=== PATIENT | female | born 1945 | race Caucasian/White ===

== ENCOUNTER 2016-06-10 22:39 | Emergency (ER) | payer BC ==
[~2016-06-10] VITALS: Ht 162.6 cm; Wt 78.5 kg
[~2016-06-10 22:39] MED LIST: ASPI-676 PO; ATOR20TA17 PO; CHOL2000 PO; CLON-379 PO; DOCU100C26 PO; FLUO10CA66 PO; LOSA50TA2 PO; METF1000 PO; PANT40TA3 PO; TRAM50TA2 PO
[2016-06-10 22:44] VITALS: Ht 162.6 cm; Wt 78.5 kg
[2016-06-10 23:56] LABS: URINE BLOOD (Dip) POC 2+ (NEGATIVE)
[2016-06-11] MEDS ORDERED: ACETAMINOPHEN 325 MG TAB PO ONE
[2016-06-11 00:09] LABS: ADD SCAN DIFF NO
[2016-06-11 00:12] LABS: BASOPHIL # 0.1 10^3/ul (0.0-0.1); BASOPHILS % 0.8 % (0.0-2.0); EOSINOPHILS # 0.4 10^3/ul (0.0-0.5); EOSINOPHILS % 4.2 % (0.0-7.0); HEMATOCRIT 32.9 % (37.0-47.0); HEMOGLOBIN 10.5 g/dl (12.0-16.0); LYMPHOCYTES # 3.7 10^3/ul (0.8-2.9); MEAN CORPUSCULAR HEMOGLOBIN 25.2 pg (29.0-33.0); MEAN CORPUSCULAR HGB CONC 31.9 g/dl (32.0-37.0); MEAN CORPUSCULAR VOLUME 79.1 fl (82.0-101.0); MONOCYTE # 0.7 10^3/ul (0.3-0.9); MONOCYTES % 7.5 % (0.0-11.0); NEUTROPHIL # 4.2 10^3/ul (1.6-7.5); NEUTROPHILS % 46.3 % (39.0-77.0); PLATELET COUNT 208 10^3/UL (140-415); RED BLOOD COUNT 4.16 10^6/ul (4.20-5.40)
[2016-06-11 00:21] LABS: ADD UMIC YES; URINE BILIRUBIN (Dip) NEGATIVE (NEGATIVE); URINE BLOOD (Dip) 2+ (NEGATIVE); URINE COLOR LT. YELLOW (YELLOW); URINE GLUCOSE (Dip) NEGATIVE (NEGATIVE); URINE KETONES (Dip) NEGATIVE (NEGATIVE); URINE LEUKOCYTE ESTERASE (Dip) 3+ (NEGATIVE); URINE NITRITE (Dip) NEGATIVE (NEGATIVE); URINE TOTAL PROTEIN (Dip) TRACE (NEGATIVE); URINE UROBILINOGEN (Dip) 0.2 E.U./dL (0.1-1.0)
[2016-06-11 00:32] LABS: ALBUMIN 3.7 g/dl (3.3-4.9); ALBUMIN/GLOBULIN RATIO 1.05; CALCIUM 8.9 mg/dl (8.4-10.2); CREATININE 0.67 mg/dl (0.44-1.00); POTASSIUM 3.9 mmol/L (3.5-5.1); TOTAL PROTEIN 7.2 g/dl (6.1-8.1)
[2016-06-11 00:45] LABS: BACTERIA,URINE FEW; SQUAMOUS EPITHELIAL CELL,UR OCCASIONAL
--- NOTE | 2016-06-11 02:57 | RADRPT ---
PROCEDURE: CT ABDOMEN/PELVIS WITHOUT CONTRAST CLINICAL INDICATION: 71-year-old female with abdominal pain. TECHNIQUE: The study was performed utilizing a GE [employer] Tekpeed VCT 64-slice CT scanner. Direct axia l sections were obtained through the abdomen and pelvis without the use of intravenous contrast mate rial. Sagittal and coronal reformations were obtained. One or more of the following dose reduction t echniques were utilized: automated exposure control, adjustment of the mA and/or kV according to pat ient's size or use of iterative reconstruction technique. The images were reviewed on a PACS workst [facility]. CTD/vol = 17.0 mGy; Total Exam DLP = 979.7 mGy-cm. COMPARISON: CT abdomen/pelvis December 01, 2013. FINDINGS: The lung bases are unremarkable. There is no evidence for significant pleural effusion. The liver has a normal size and contour without focal areas of abnormal density. No intrahepatic nor extrahepa tic biliary ductal dilatation is seen. The gallbladder demonstrates no wall thickening nor perichole cystic fluid. No biliary stones are evident. A small cystic focus within the mid body of the pancrea s measuring approximately 6 x 4 mm on axial image 3-61 which was present previously and is without s ignificant interval change. The spleen is identified and has a normal size without abnormal density . The adrenal glands are unremarkable. The kidneys are without abnormal density. No hydroureteroneph rosis nor nephroureterolithiasis is evident. The urinary bladder contains urine. There is a minimal hiatal hernia. There is mild retained stool throughout the colon without obstruction. There are mu ltiple diverticula identified within the descending and sigmoid colon with mild surrounding inflammatory changes and minimal free fluid consistent with recurrent acute sigmoid diverticulitis. The appendix is visualized and is without abnormal thickening or surrounding inflammatory reaction. The uterus is atrophic. The aortoiliac vessels are calcified but without aneurysmal dilatation. De generative changes are present within the spine. There are bilateral L5 pars interarticularis defect s with minimal L5-S1 anterolisthesis and mild diffuse disk bulge resulting in yjrqeoaw-[id number]-aflkzo rig ht and wuiq-tm-gnvylxye left foraminal stenosis. IMPRESSION: 1. Mild acute sigmoid diverticulitis. 2. Retained stool without obstruction. 3. No CT evidence for appendicitis. 4. Stable small pancreatic cyst. 5. Vascular calcifications. 6. Degenerative changes within the spine with L5-S1 spondylolisthesis. .Matteo Wood MD, MD Date Time Electronically viewed and signed by .Matteo Wood MD, MD on 06/11/2016 02:57 ./
--- NOTE | 2016-06-11 03:38 | ERD ---
ER Documentation Chief Complaint Date/Time DATE: 06/11/16 TIME: 03:27 Chief Complaint blood in vagina, painful urination ,pelvic pain HPI This pleasant 71-year-old female presents to the emergency department with her daughter complaining of pelvic pain, dysuria, hematuria and blood on the toilet paper when wiping. Patient reports that she has been symptomatic for several days before telling her daughter. Daughter denies any change in mentation. Patient has not been confused or exhibiting any change in behavior. Patient reports back pain, denies fever, chills, nausea or vomiting. Patient has a complex medical history including diverticulosis, a bladder fistula, diabetes mellitus, and coronary artery disease, and total abdominal hysterectomy.. Patient denies chest pain, shortness of breath, or dizziness. ROS All systems reviewed and are negative except as per history of present illness. Medications Home Meds Active Scripts Ciprofloxacin Hcl* (Ciprofloxacin Hcl*) 500 Mg Tablet, 500 MG PO BID for 7 Days , TAB Prov:SIXTO,KAYLA 06/11/16 Metronidazole* (Flagyl*) 500 Mg Tablet, 500 MG PO TID for 7 Days, TAB Prov:SIXTO,KAYLA 06/11/16 Tramadol HCl (Tramadol HCl) 50 Mg Tablet, 50 MG PO Q6 Y for PAIN, #20 TAB Prov:MELVA TA DO 06/22/15 Clonidine Hcl* (Clonidine Hcl*) 0.1 Mg Tab, 0.1 MG PO TID Y for ELEVATED BLOOD PRESSURE, #20 TAB Take as instructed is systolic blood pressure is greater then 180mmHg Prov:ADORE ANDERSON 03/06/15 Reported Medications Fluoxetine Hcl* (Prozac*) 10 Mg Capsule, 10 MG PO DAILY, CAP 03/06/15 Pantoprazole* (Protonix*) 40 Mg Tablet.dr, 40 MG PO DAILY, TAB 03/06/15 Docusate Sodium* (Doc-Q-Lace*) 100 Mg Capsule, 100 MG PO DAILY, CAP 03/06/15 Cholecalciferol* (Vitamin D3*) 2,000 Unit Cap, 2000 UNIT PO DAILY, CAP 03/06/15 Metformin Hcl* (Metformin Hcl*) 1,000 Mg Tablet, 1000 MG PO BID WITH MEALS, #30 TAB 03/06/15 Losartan Potassium* (Cozaar*) 50 Mg Tablet, 50 MG PO BID 10/29/10 Atorvastatin (Lipitor) 20 Mg Tablet, 20 MG PO HS 10/29/10 Aspirin (Jhonny Child) 81 Mg Chew, 81 MG PO DAILY 10/29/10 Allergies Allergies: Coded Allergies: Penicillins (Verified Allergy, Unknown, 03/06/15) aspirin (Verified Allergy, Unknown, 03/06/15) PMhx/Soc History of Surgery: No Anesthesia Reaction: No Hx Neurological Disorder: No Hx Respiratory Disorders: No Hx Cardiac Disorders: Yes (HTN) Hx Psychiatric Problems: No Hx Miscellaneous Medical Probl: Yes ( DM Ulcers bladder fistula, diverticulosis ) Hx Alcohol Use: No Hx Substance Use: No Hx Tobacco Use: No Smoking Status: Never smoker Physical Exam Vitals Vitals stable, triage notes reviewed Physical Exam Const: No acute distress Head: Atraumatic Eyes: Normal Conjunctiva PERRLA, EOMI ENT: Normal External Ears, Nose and Mouth, mucous membranes moist Neck: Full range of motion..~ No meningismus. Resp: Chest rise and fall symmetrically clear to auscultation bilaterally, no rales wheezes or rhonchi Cardio: Regular rate and rhythm, no murmurs Abd: Abdomen soft, obese, tender to palpation on lower quadrants. CVA tenderness Skin: No petechiae or rashes Back: Bilateral flank tenderness Ext: Neur: Awake and alert Psych: Normal Mood and Affect Results 24 hrs Laboratory Tests Test 06/10/16 23:50 06/10/16 23:56 White Blood Count 9.010^3/ul Red Blood Count 4.1610^6/ul Hemoglobin 10.5g/dl Hematocrit 32.9% Mean Corpuscular Volume 79.1fl Mean Corpuscular Hemoglobin 25.2pg Mean Corpuscular Hemoglobin Concent 31.9g/dl Red Cell Distribution Width 15.0% Platelet Count 15430^3/UL Mean Platelet Volume 10.0fl Neutrophils % 46.3% Lymphocytes % 41.0% Monocytes % 7.5% Eosinophils % 4.2% Basophils % 0.8% Nucleated Red Blood Cells % 0.0/100WBC Neutrophils # 4.210^3/ul Lymphocytes # 3.710^3/ul Monocytes # 0.710^3/ul Eosinophils # 0.410^3/ul Basophils # 0.110^3/ul Nucleated Red Blood Cells # 0.010^3/ul Urine Color LT. YELLOW Urine Clarity SLIGHTLY CLOUDY Urine pH 7.0 Urine Specific [place] <=1.005 Urine Ketones NEGATIVE Urine Nitrite NEGATIVE Urine Bilirubin NEGATIVE Urine Urobilinogen 0.2 E.U./dL Urine Leukocyte Esterase 3+ Urine Microscopic RBC 5-10/HPF Urine Microscopic WBC >200/HPF Urine Squamous Epithelial Cells OCCASIONAL Urine Bacteria FEW Urine Hemoglobin 2+ Urine Glucose NEGATIVE% Urine Total Protein TRACE Sodium Level 133mmol/L Potassium Level 3.9mmol/L Chloride Level 101mmol/L Carbon Dioxide Level 27mmol/L Anion Gap 9 Blood Urea Nitrogen 10mg/dl Creatinine 0.67mg/dl Glucose Level 100mg/dl Calcium Level 8.9mg/dl Total Bilirubin 0.0mg/dl Direct Bilirubin 0.00mg/dl Indirect Bilirubin 0.0mg/dl Aspartate Amino Transf (AST/SGOT) 29IU/L Alanine Aminotransferase (ALT/SGPT) 28IU/L Alkaline Phosphatase 59IU/L Total Protein 7.2g/dl Albumin 3.7g/dl Globulin 3.50g/dl Albumin/Globulin Ratio 1.05 Lipase 95U/L Bedside Urine pH (LAB) 7.0 Bedside Urine Protein (LAB) 1+ Bedside Urine Glucose (UA) Negative Bedside Urine Ketones (LAB) Negative Bedside Urine Blood 2+ Bedside Urine Nitrite (LAB) Negative Bedside Urine Leukocyte Esterase (L 3+ Current Medications Medications (Trade) Dose Ordered Sig/Terra Route PRN Reason Start Time Stop Time Status Last Admin Dose Admin Acetaminophen (Tylenol Tab) 650 mg ONCE ONCE PO 06/11/16 00:00 06/11/16 00:01 DC 06/11/16 00:21 Metronidazole (Flagyl) 500 mg ONCE ONCE PO 06/11/16 04:00 06/11/16 04:02 DC 06/11/16 04:15 Ciprofloxacin (Cipro) 500 mg ONCE ONCE PO 06/11/16 04:00 06/11/16 04:02 DC 06/11/16 04:15 Interpretation text CBC shows no evidence of hemorrhage or infection Chemistry shows no evidence of significant electrolyte abnormalities (sodium 133 ) or renal insufficiency Liver function tests shows no evidence of acute biliary or hepatic dysfunction Lipase shows no evidence of acute pancreatitis Urinalysis positive for hematuria, leukocytosis. Suggestive of urinary tract infection Procedures/MDM PROCEDURE: CT ABDOMEN/PELVIS WITHOUT CONTRAST CLINICAL INDICATION: 71-year-old female with abdominal pain. TECHNIQUE: The study was performed utilizing a GE [employer] 64-slice CT scanner. Direct axial sections were obtained through the abdomen and pelvis without the use of intravenous contrast material. Sagittal and coronal reformations were obtained. One or more of the following dose reduction techniques were utilized: automated exposure control, adjustment of the mA and/ or kV according to patient's size or use of iterative reconstruction technique. The images were reviewed on a PACS workstation. CTD/vol = 17.0 mGy; Total Exam DLP = 979.7 mGy-cm. COMPARISON: CT abdomen/pelvis December 01, 2013. FINDINGS: The lung bases are unremarkable. There is no evidence for significant pleural effusion. The liver has a normal size and contour without focal areas of abnormal density. No intrahepatic nor extrahepatic biliary ductal dilatation is seen. The gallbladder demonstrates no wall thickening nor pericholecystic fluid. No biliary stones are evident. A small cystic focus within the mid body of the pancreas measuring approximately 6 x 4 mm on axial image 3-61 which was present previously and is without significant interval change. The spleen is identified and has a normal size without abnormal density. The adrenal glands are unremarkable. The kidneys are without abnormal density. No hydroureteronephrosis nor nephroureterolithiasis is evident. The urinary bladder contains urine. There is a minimal hiatal hernia. There is mild retained stool throughout the colon without obstruction. There are multiple diverticula identified within the descending and sigmoid colon with mild surrounding inflammatory changes and minimal free fluid consistent with recurrent acute sigmoid diverticulitis. The appendix is visualized and is without abnormal thickening or surrounding inflammatory reaction. The uterus is atrophic. The aortoiliac vessels are calcified but without aneurysmal dilatation. Degenerative changes are present within the spine. There are bilateral L5 pars interarticularis defects with minimal L5-S1 anterolisthesis and mild diffuse disk bulge resulting in frodonbe-vb-fseayz right and gmih-lj-ycndjybt left foraminal stenosis. IMPRESSION: 1. Mild acute sigmoid diverticulitis. 2. Retained stool without obstruction. 3. No CT evidence for appendicitis. 4. Stable small pancreatic cyst. 5. Vascular calcifications. 6. Degenerative changes within the spine with L5-S1 spondylolisthesis. .Matteo Wood MD, Date Time Electronically viewed and signed by .Matteo Wood MD, on 06/11/2016 02:57 .M/ CC: KAYLA HENSON This pleasant 71-year-old female brought in by daughter with complaint of lower abdominal pain, dysuria, hematuria. Symptoms have been present for several days. Patient has a complex medical history including diabetes, coronary artery disease, diverticulosis and a bladder fistula. Differential diagnosis includes but not limited to urinary tract infection, pyelonephritis, diverticulitis, perforated diverticuli, acute abdomen. CBC shows no evidence of hemorrhage or infection Chemistry shows no evidence of significant electrolyte abnormalities or renal insufficiency. Patient is afebrile, treated with Tylenol for pain. CAT scan of abdomen and pelvis show mild acute sigmoid diverticulitis, retained stool without obstruction. Patient is well hydrated, does not appear toxic, is alert afebrile with stable vital signs I feel she can be treated in the outpatient setting. She will receive a dose of Flagyl and Cipro tonight prior to discharge sent home on a seven-day course of both medications. Strict return to emergency room precautions advised. Return for any nausea, vomiting, fever, worsening of abdominal pain, rectal bleeding. Follow-up with primary physician in 24 hours. I feel the patient is stable for discharge at this time. I have discussed results, examination findings, the treatment plan with the patient and family present prior to discharge. Indications for emergent reevaluation, side effects of medication were also discussed. All questions were answered. Patient verbalizes understanding and agrees with plan of care. Case discussed with supervising physician Dr. Manuel Boggs Diagnosis: Primary Impression: Urinary tract infection Urinary tract infection type: site unspecified Hematuria presence: with hematuria Qualified Code: N39.0 - Urinary tract infection with hematuria, site unspecified Additional Impression: Diverticula of colon Diverticulosis bleeding: diverticulosis with bleeding Qualified Code: K57.31 - Diverticulosis of large intestine with hemorrhage Condition: Good Patient Instructions: Diverticulitis, Understanding Urinary Tract Infections ( UTIs) Additional Instructions: Thank you for for coming to [facility] for your care today. Please ask your nurse or provider if you have questions about your care today and do not leave until all your questions have been answered. Please use any medications given as directed and follow-up with your doctor (or the doctor you were referred to) in the next 2-3 days. If you do not have a primary care doctor you may follow up at the [facility] (listed below). You may also use motrin and tylenol as needed for fever and/or pain unless instructed otherwise by your provider or nurse. Indications for more urgent follow-up have been discussed, but you may return to the Emergency Department at ANY time for any worrisome or worsening symptoms. If you have abdominal pain, please know that no test or exam you received is perfect and you should follow up within 8 hours for continued pain. If you had any imaging studies today, such as an X-Ray or CT Scan, these studies will be reviewed later by a radiologist. You will be called if there are important findings that were not identified today, so make sure the contact information you provided at registration is correct. If you received any narcotic pain control medicine today, such as Vicodin, Morphine or Dilaudid, your coordination and judgment may be affected for a number of hours. Please do not drive or operate heavy machinery, and you may want someone to assist you at home. If you were given a prescription for narcotic medication, be aware that it is very addictive- use sparingly and only if necessary. KAYLA HENSON Jun 11, 2016 03:37 KAYLA HENSON Jun 11, 2016 03:37
[2016-06-11] MEDS ORDERED: NITR-58 PO ×2 (03:40→03:41)
[2016-06-11] MEDS ORDERED: PHEN-538 PO (03:43)
[2016-06-11] MEDS ORDERED: METR500T PO (03:57)
[2016-06-11] MEDS ORDERED: CIPR500T4 PO (03:57)
[2016-06-11] MEDS ORDERED: metroNIDAZOLE 500 MG TAB PO ONE (04:00)
[2016-06-11] MEDS ORDERED: CIPROFLOXACIN 500 MG TAB PO ONE (04:00)
[2016-06-11 04:21] VITALS: BP 118/57; PULSE 61; RESP 16; TEMP 97.7
== END 2016-06-11 04:32 | disposition home or self-care (01) ==
LOC: FTE 22:39
DX: N39.0 Urinary tract infection, site not specified (principal); K57.31 Diverticulosis of large intestine without perforation or abscess with bleeding; I10 Essential (primary) hypertension; E11.9 Type 2 diabetes mellitus without complications; I25.10 Atherosclerotic heart disease of native coronary artery without angina pectoris; Z79.82 Long term (current) use of aspirin; Z79.84 Long term (current) use of oral hypoglycemic drugs
CPT/HCPCS: 74176; 80053; 81001; 81003; 83690; 85025; 87086; Z7610; 36415

== ENCOUNTER 2016-08-09 11:56 | Emergency (ER) | payer BC ==
[~2016-08-09] VITALS: Ht 157.5 cm; Wt 70.0 kg
[~2016-08-09 11:56] MED LIST changes: +CIPR500T4 PO; +METR500T PO
[2016-08-09 12:00] VITALS: Ht 157.5 cm; Wt 70.0 kg
[2016-08-09] MEDS ORDERED: SOD CHLORIDE 0.9% 1,000 ML IV STA (13:00)
[2016-08-09] MEDS ORDERED: morphine 4 MG/ML VIAL IV STA (13:00)
[2016-08-09] MEDS ORDERED: ONDANSETRON 4 MG INJ IV STA (13:00)
--- NOTE | 2016-08-09 13:00 | ERD ---
ER Documentation Chief Complaint Date/Time DATE: 08/09/16 TIME: 12:58 Chief Complaint ap, hematuria x 2 weeks HPI 70-year-old female, history of hyperlipidemia, hypertension, diabetes mellitus, gastritis and gastroesophageal reflux disease, diverticulosis, diverticulitis osteoarthritis, diabetic neuropathy, urinary tract infection, pyelonephritis and depression ambulatory to the ED complaining of a one-month history of worsening, generalized, sharp and crampy, nonradiating abdominal pain which has become severe over the last 2 days. Nausea but no vomiting, diarrhea or constipation. Patient has noted bleeding which she insists is either vaginal or urinary but definitely not hematochezia. No hematemesis or melanotic stools. Dysuria and hematuria but no polyuria or flank pain. No relieving or exacerbating factors. No chest pain or palpitations. Denies shortness of breath or cough. No skin rash. Denies headache, visual changes, focal weakness or numbness. No neck or back pain. Subjective fevers and chills. ROS All systems reviewed and are negative except as per history of present illness. Medications Home Meds Active Scripts Tramadol HCl (Tramadol HCl) 50 Mg Tablet, 50 MG PO Q6 Y for PAIN, #12 TAB Prov:ARIEL JOE MD 08/09/16 Ondansetron Hcl* (Zofran*) 4 Mg Tablet, 4 MG PO Q8H Y for NAUSEA AND/OR VOMITING , #15 TAB Prov:ARIEL JOE MD 08/09/16 Metronidazole* (Flagyl*) 500 Mg Tablet, 500 MG PO TID for 10 Days, TAB Prov:ARIEL JOE MD 08/09/16 Ciprofloxacin Hcl* (Ciprofloxacin Hcl*) 500 Mg Tablet, 500 MG PO BID for 10 Days , TAB Prov:ARIEL JEO MD 08/09/16 Reported Medications Cholecalciferol* (Vitamin D3*) 1,000 Unit Tablet, 1000 UNIT PO DAILY, TAB 08/09/16 Oxybutynin Chloride* (Ditropan* XL) 10 Mg Tab.er.24, 10 MG PO DAILY, TAB.SA 08/09/16 Gabapentin* (Gabapentin*) 100 Mg Capsule, 100 MG PO DAILY, #30 CAP 08/09/16 Pantoprazole* (Protonix*) 40 Mg Tablet.dr, 40 MG PO DAILY, TAB 03/06/15 Metformin Hcl* (Metformin Hcl*) 1,000 Mg Tablet, 1000 MG PO BID WITH MEALS, #30 TAB 03/06/15 Losartan Potassium* (Cozaar*) 50 Mg Tablet, 50 MG PO BID 10/29/10 Atorvastatin (Lipitor) 20 Mg Tablet, 20 MG PO HS 10/29/10 Aspirin (Jhonny Child) 81 Mg Chew, 81 MG PO DAILY 10/29/10 Discontinued Reported Medications Fluoxetine Hcl* (Prozac*) 10 Mg Capsule, 10 MG PO DAILY, CAP 03/06/15 Docusate Sodium* (Doc-Q-Lace*) 100 Mg Capsule, 100 MG PO DAILY, CAP 03/06/15 Cholecalciferol* (Vitamin D3*) 2,000 Unit Cap, 2000 UNIT PO DAILY, CAP 03/06/15 Discontinued Scripts Ciprofloxacin Hcl* (Ciprofloxacin Hcl*) 500 Mg Tablet, 500 MG PO BID for 7 Days , TAB Prov:SIXTO,KAYLA 06/11/16 Metronidazole* (Flagyl*) 500 Mg Tablet, 500 MG PO TID for 7 Days, TAB Prov:SIXTO,KAYLA 06/11/16 Tramadol HCl (Tramadol HCl) 50 Mg Tablet, 50 MG PO Q6 Y for PAIN, #20 TAB Prov:MELVA TA DO 06/22/15 Clonidine Hcl* (Clonidine Hcl*) 0.1 Mg Tab, 0.1 MG PO TID Y for ELEVATED BLOOD PRESSURE, #20 TAB Take as instructed is systolic blood pressure is greater then 180mmHg Prov:ADORE ANDERSON 03/06/15 Allergies Allergies: Coded Allergies: Penicillins (Verified Allergy, Unknown, 08/09/16) aspirin (Verified Allergy, Unknown, 08/09/16) PMhx/Soc As per HPI. Reviewed in chart, lives with family. History of Surgery: No Anesthesia Reaction: No Hx Neurological Disorder: No Hx Respiratory Disorders: No Hx Cardiac Disorders: Yes (HTN) Hx Psychiatric Problems: No Hx Miscellaneous Medical Probl: Yes ( DM Ulcers bladder fistula, diverticulosis ) Hx Alcohol Use: No Hx Substance Use: No Hx Tobacco Use: No FmHx Father of [place] in his 50s. Multiple other family members with heart disease. Mother: Liver cancer. Physical Exam Vitals Vital Signs Date Time Temp Pulse Resp B/P Pulse Ox O2 Delivery O2 Flow Rate FiO2 08/09/16 17:06 98.8 18 99 08/09/16 12:00 98.8 85 18 170/104 99 Physical Exam Const: Alert, moderate distress due to pain. Head: Atraumatic Eyes: Normal Conjunctiva ENT: Normal External Ears, Nose and Mouth. Neck: Full range of motion..~ No meningismus. Resp: Clear to auscultation bilaterally Cardio: Regular rate and rhythm, no murmurs Abd: Soft, diffuse nonlocalizing tenderness. No rebound or guarding. Bowel sounds are present. Skin: No petechiae or rashes Back: No midline or flank tenderness Ext: No cyanosis, or edema Neur: Awake and alert Psych: Normal Mood and Affect Result Diagram: 08/09/16 1300 08/09/16 1300 Results 24 hrs Laboratory Tests Test 08/09/16 12:45 08/09/16 13:00 08/09/16 13:20 Urine Color YELLOW Urine Clarity CLOUDY Urine pH 6.0 Urine Specific [place] 1.012 Urine Ketones NEGATIVEmg/dL Urine Nitrite NEGATIVEmg/dL Urine Bilirubin NEGATIVEmg/dL Urine Urobilinogen NEGATIVEmg/dL Urine Leukocyte Esterase 3+Juanito/ul Urine Microscopic RBC 9/HPF Urine Microscopic WBC > 182/HPF Urine Bacteria FEW/HPF Urine Hemoglobin 1+mg/dL Urine Glucose NEGATIVEmg/dL Urine Total Protein NEGATIVEmg/dl White Blood Count 7.610^3/ul Red Blood Count 4.4710^6/ul Hemoglobin 11.8g/dl Hematocrit 35.9% Mean Corpuscular Volume 80.3fl Mean Corpuscular Hemoglobin 26.4pg Mean Corpuscular Hemoglobin Concent 32.9g/dl Red Cell Distribution Width 15.1% Platelet Count 58077^3/UL Mean Platelet Volume 9.6fl Neutrophils % 49.5% Lymphocytes % 37.4% Monocytes % 8.2% Eosinophils % 4.0% Basophils % 0.5% Nucleated Red Blood Cells % 0.0/100WBC Neutrophils # 3.810^3/ul Lymphocytes # 2.810^3/ul Monocytes # 0.610^3/ul Eosinophils # 0.310^3/ul Basophils # 0.010^3/ul Nucleated Red Blood Cells # 0.010^3/ul Sodium Level 135mmol/L Potassium Level 3.6mmol/L Chloride Level 100mmol/L Carbon Dioxide Level 25mmol/L Anion Gap 14 Blood Urea Nitrogen 8mg/dl Creatinine 0.66mg/dl Glucose Level 124mg/dl Calcium Level 10.0mg/dl Total Bilirubin 0.2mg/dl Direct Bilirubin 0.00mg/dl Indirect Bilirubin 0.2mg/dl Aspartate Amino Transf (AST/SGOT) 32IU/L Alanine Aminotransferase (ALT/SGPT) 34IU/L Alkaline Phosphatase 46IU/L Troponin I < 0.012ng/ml Total Protein 7.8g/dl Albumin 4.5g/dl Globulin 3.30g/dl Albumin/Globulin Ratio 1.36 Lipase 66U/L Bedside Glucose 104mg/dL Current Medications Medications (Trade) Dose Ordered Sig/Terra Route PRN Reason Start Time Stop Time Status Last Admin Dose Admin Sodium Chloride (NS) 1,000 ml @ 1,000 mls/hr Q1H STAT IV 08/09/16 13:00 08/09/16 13:59 DC 08/09/16 13:13 Morphine Sulfate (morphine) 4 mg ONCE STAT IV 08/09/16 13:00 08/09/16 13:02 DC 08/09/16 13:13 Ondansetron HCl (Zofran Inj) 4 mg ONCE STAT IV 08/09/16 13:00 08/09/16 13:02 DC 08/09/16 13:13 Iohexol 150 ml 150 ml STK-MED ONCE .ROUTE 08/09/16 14:02 08/09/16 14:03 DC 08/09/16 14:30 Sodium Chloride (NS) 250 ml @ ud STK-MED ONCE .ROUTE 08/09/16 14:02 08/09/16 14:03 DC 08/09/16 14:30 Metronidazole (Flagyl) 500 mg ONCE ONCE PO 08/09/16 15:30 08/09/16 15:31 DC 08/09/16 15:30 Ciprofloxacin (Cipro) 500 mg ONCE ONCE PO 08/09/16 15:30 08/09/16 15:31 DC 08/09/16 15:30 EKG: Time: 13:23. Sinus rhythm. Ventricular rate 70, normal NH and QRS intervals. No acute ST segment elevation or depression. No axis deviation or ectopy. EP Impression: Normal EKG IMAGING: PROCEDURE: CT abdomen and pelvis with intravenous contrast. CLINICAL INDICATION: Abdominal pain. Hematuria. TECHNIQUE: Following intravenous contrast, spiral CT of the abdomen pelvis was performed and is reconstructed at 2.5 mm contiguous axial intervals from the dome of the diaphragm to the inferior pubic rami. Computer reformatted coronal and sagittal images are included. CT D I 20 millicurie Dose 1078 millicurie per centimeter COMPARISON: CT abdomen pelvis June 11, 2016. FINDINGS: Lung bases are clear of any infiltrate or mass. There is no effusion. The liver is of normal size, contour and attenuation with no mass or intrahepatic ductal dilatation. No gallstones are present. No splenic, adrenal or pancreatic abnormalities present. Kidneys excrete contrast symmetrically. No hydronephrosis, calculus or masses present. Ureters are of normal course and caliber with no stone. There is thickening of the fundus of the bladder adjacent to the sigmoid. There is questionable trace fluid interposed between the inferior aspect of the sigmoid and superior aspect of the wall of the bladder. This may represent evidence of diverticulitis or a bladder malignancy.. Uterus is been removed. No adnexal mass is present. No bowel mass or obstruction is seen. There is diverticulosis. The appendix is normal. There is no phlegmon, ascites or pneumoperitoneum. No aneurysm is detected. There is no adenopathy. There is mild rotary dextroscoliosis of the lumbar spine with degenerative disk disease. IMPRESSION: Sigmoid diverticulosis. Thick-walled fundus of the urinary bladder with questionable fluid and extraluminal air interposed between the inferior wall of sigmoid and superior wall of the bladder. Question diverticulitis. Bladder malignancy with focal perforation cannot be ruled out. Post hysterectomy. Rotary dextroscoliosis lumbar spine with degenerative disk disease. .Brandon López MD, MD Date Time Electronically viewed and signed by .Brandon López MD, MD on 08/09/2016 14: 42 .A/ Procedures/MDM DOCUMENTS REVIEWED: ED nurse, prior ED, prior records. ED COURSE: Normal saline 1 L. Morphine 4 mg/Zofran 4 mg IV. REEXAMINATION/REEVALUATION: Time: 14:00. Doing well. Pain decreased. [employer]-year-old female, history of hyperlipidemia, hypertension, diabetes mellitus, gastritis and gastroesophageal reflux disease, diverticulosis, diverticulitis osteoarthritis, diabetic neuropathy, urinary tract infection, pyelonephritis and depression ambulatory to the ED complaining of a one-month history of worsening, generalized, sharp and crampy, nonradiating abdominal pain which has become severe over the last 2 days. Pain likely due to diverticulitis. Acute cystitis with hematuria. Vital signs are normal and no significant anemia. CT findings as above. There is a possibility of a enterovesicular fistula which is already been explored. Patient was seen by urology recently and told that there was no urologic abnormality and needed to follow up with GI or surgery. No fever, leukocytosis or other criteria for systemic inflammatory response syndrome or sepsis. Tolerating PO's and stable for discharge with oral antibiotics, analgesics and outpatient follow-up as counseled. Counseled patient and family regarding diagnostic workup, diagnosis and need for followup. Understands to return to ED if symptoms recur, worsen or any other concerns. Departure Diagnosis: Primary Impression: Acute generalized abdominal pain Additional Impressions: Diverticulitis Diverticulitis site: large intestine Diverticulitis bleeding: without bleeding Diverticulitis complication: without perforation or abscess Qualified Code: K57.32 - Diverticulitis of large intestine without perforation or abscess without bleeding Acute cystitis Hematuria presence: with hematuria Qualified Code: N30.01 - Acute cystitis with hematuria Diabetes mellitus type 2 in obese Condition: Stable (Improved) ARIEL JOE MD Aug 09, 2016 13:00
[2016-08-09 13:20] LABS: ADD SCAN DIFF NO
[2016-08-09 13:24] LABS: BASOPHILS % 0.5 % (0.0-2.0); EOSINOPHILS # 0.3 10^3/ul (0.0-0.5); HEMATOCRIT 35.9 % (37.0-47.0); HEMOGLOBIN 11.8 g/dl (12.0-16.0); LYMPHOCYTES # 2.8 10^3/ul (0.8-2.9); LYMPHOCYTES % 37.4 % (15.0-51.0); MEAN CORPUSCULAR HEMOGLOBIN 26.4 pg (29.0-33.0); MEAN CORPUSCULAR HGB CONC 32.9 g/dl (32.0-37.0); MEAN CORPUSCULAR VOLUME 80.3 fl (82.0-101.0); MEAN PLATELET VOLUME 9.6 fl (7.4-10.4); MONOCYTE # 0.6 10^3/ul (0.3-0.9); MONOCYTES % 8.2 % (0.0-11.0); NEUTROPHIL # 3.8 10^3/ul (1.6-7.5); NEUTROPHILS % 49.5 % (39.0-77.0); PLATELET COUNT 223 10^3/UL (140-415); RED BLOOD COUNT 4.47 10^6/ul (4.20-5.40); RED CELL DISTRIBUTION WIDTH 15.1 % (11.5-14.5); WHITE BLOOD COUNT 7.6 10^3/ul (4.8-10.8)
[2016-08-09 13:33] LABS: ALANINE AMINOTRANSFERASE 34 IU/L (13-69); ALBUMIN 4.5 g/dl (3.3-4.9); ALBUMIN/GLOBULIN RATIO 1.36; ALKALINE PHOSPHATASE 46 IU/L (42-121); ANION GAP 14 (8-16); ASPARTATE AMINO TRANSFERASE 32 IU/L (15-46); BILIRUBIN,INDIRECT 0.2 mg/dl (0-1.1); BILIRUBIN,TOTAL 0.2 mg/dl (0.2-1.3); BLOOD UREA NITROGEN 8 mg/dl (7-20); CHLORIDE 100 mmol/L (97-110); CREATININE 0.66 mg/dl (0.44-1.00); GLUCOSE 124 mg/dl (70-220); POTASSIUM 3.6 mmol/L (3.5-5.1); SODIUM 135 mmol/L (135-144); TOTAL PROTEIN 7.8 g/dl (6.1-8.1)
[2016-08-09 13:37] LABS: CARBON DIOXIDE 25 mmol/L (21-31)
[2016-08-09 13:46] LABS: TROPONIN-I < 0.012 ng/ml (0.00-0.12)
[2016-08-09 14:02] LABS: ADD UMIC YES; UR ASCORBIC ACID 20 mg/dL (NEGATIVE); UR BACTERIA FEW /HPF (NONE SEEN); UR BILIRUBIN (Dip) NEGATIVE (NEGATIVE); UR BLOOD (Dip) 1+ mg/dL (NEGATIVE); UR CLARITY CLOUDY (CLEAR); UR COLOR YELLOW (YELLOW); UR GLUCOSE (Dip) NEGATIVE (NEGATIVE); UR KETONES (Dip) NEGATIVE (NEGATIVE); UR LEUKOCYTE ESTERASE (Dip) 3+ Leu/ul (NEGATIVE); UR NITRITE (Dip) NEGATIVE (NEGATIVE); UR RBC 9 /HPF (0-5); UR SPECIFIC GRAVITY (Dip) 1.012 (1.003-1.030); UR TOTAL PROTEIN (Dip) NEGATIVE (NEGATIVE); UR UROBILINOGEN (Dip) NEGATIVE (NEGATIVE); UR WBC CLUMPS MANY /HPF (NONE SEEN)
[2016-08-09] MEDS ORDERED: IOHEXOL 300MG/ML 150 ML BTL ONE (14:02)
[2016-08-09] MEDS ORDERED: SOD CHLORIDE 0.9% 250 ML ONE (14:02)
[2016-08-09] MEDS ORDERED: GABA100C14 PO (14:07)
[2016-08-09] MEDS ORDERED: OXYB10TA6 PO (14:08)
[2016-08-09] MEDS ORDERED: CHOL100062 PO (14:08)
--- NOTE | 2016-08-09 14:43 | RADRPT ---
PROCEDURE: CT abdomen and pelvis with intravenous contrast. CLINICAL INDICATION: Abdominal pain. Hematuria. TECHNIQUE: Following intravenous contrast, spiral CT of the abdomen pelvis was performed and is re constructed at 2.5 mm contiguous axial intervals from the dome of the diaphragm to the inferior pubi c rami. Computer reformatted coronal and sagittal images are included. CT D I 20 millicurie Dose 1078 millicurie per centimeter COMPARISON: CT abdomen pelvis June 11, 2016. FINDINGS: Lung bases are clear of any infiltrate or mass. There is no effusion. The liver is of normal size, contour and attenuation with no mass or intrahepatic ductal dilatation. No gallstones are present. No splenic, adrenal or pancreatic abnormalities present. Kidneys excrete contrast symmetrically. No hydronephrosis, calculus or masses present. Ureters are of normal course and caliber with no stone. There is thickening of the fundus of the bladder adjac ent to the sigmoid. There is questionable trace fluid interposed between the inferior aspect of the sigmoid and superior aspect of the wall of the bladder. This may represent evidence of diverticuli tis or a bladder malignancy.. Uterus is been removed. No adnexal mass is present. No bowel mass or obstruction is seen. There is diverticulosis. The appendix is normal. There is no phlegmon, ascites or pneumoperitoneum. No aneurysm is detected. There is no adenopathy. There is mild rotary dextroscoliosis of the lumbar spine with degenerative disk disease. IMPRESSION: Sigmoid diverticulosis. Thick-walled fundus of the urinary bladder with questionable fluid and extr aluminal air interposed between the inferior wall of sigmoid and superior wall of the bladder. Ques tion diverticulitis. Bladder malignancy with focal perforation cannot be ruled out. Post hysterectomy. Rotary dextroscoliosis lumbar spine with degenerative disk disease. .Brandon López MD, MD Date Time Electronically viewed and signed by .Brandon López MD, on 08/09/2016 14:42 .A/
[2016-08-09] MEDS ORDERED: CIPROFLOXACIN 500 MG TAB PO ONE (15:30)
[2016-08-09] MEDS ORDERED: metroNIDAZOLE 500 MG TAB PO ONE (15:30)
[2016-08-09] MEDS ORDERED: ONDA4TAB8 PO (16:01)
[2016-08-09] MEDS ORDERED: METR500T PO (16:01)
[2016-08-09] MEDS ORDERED: TRAM50TA2 PO (16:01)
[2016-08-09] MEDS ORDERED: CIPR500T4 PO (16:01)
[2016-08-09 17:06] VITALS: RESP 18; TEMP 98.8
== END 2016-08-09 20:00 | disposition home or self-care (01) ==
LOC: E/R 11:56
DX: R10.84 Generalized abdominal pain (principal); K57.32 Diverticulitis of large intestine without perforation or abscess without bleeding; N30.01 Acute cystitis with hematuria; E11.9 Type 2 diabetes mellitus without complications; I10 Essential (primary) hypertension; Z79.82 Long term (current) use of aspirin; Z79.84 Long term (current) use of oral hypoglycemic drugs
CPT/HCPCS: 36415; 74177; 80053; 81001; 82962; 83690; 84484; 85025; 87086; 93005; 96374; 96375; 99285; J2270; J2405; J7030; J7050; Q9967; Z7610

== ENCOUNTER 2016-12-25 18:12 | Inpatient (IN) | payer BC ==
[~2016-12-25] VITALS: Ht 157.5 cm; Wt 77.3 kg
[~2016-12-25 18:12] MED LIST changes: +CHOL100062 PO; -CHOL2000 PO; -CLON-379 PO; -DOCU100C26 PO; -FLUO10CA66 PO; +GABA100C14 PO; +ONDA4TAB8 PO; +OXYB10TA6 PO
--- NOTE | 2016-12-25 19:05 | ERD ---
ER Documentation Chief Complaint Chief Complaint Sent by PMD s/p doppler to right leg pain; + blood clot to right leg HPI 71-year-old woman referred here by PMD for possible new right lower extremity DVT. Ultrasound was done just prior to arrival for complaints of "months" of right thigh and leg pain. Patient denies redness or swelling although she does have a chronic history of varicose veins to the right anterior lower leg. Patient denies calf tenderness, no fevers or chills, no chest pain or shortness of breath. Upon further history obtained later patient complains of increasing recent epigastric abdominal pain and discomfort. She denies recent medication changes and recent travel. ROS All systems reviewed and are negative except as per history of present illness. Medications Home Meds Active Scripts Tramadol HCl (Tramadol HCl) 50 Mg Tablet, 50 MG PO Q6 Y for PAIN, #12 TAB Prov:ARIEL JOE MD 08/09/16 Ondansetron Hcl* (Zofran*) 4 Mg Tablet, 4 MG PO Q8H Y for NAUSEA AND/OR VOMITING , #15 TAB Prov:ARIEL JOE MD 08/09/16 Reported Medications Cholecalciferol* (Vitamin D3*) 1,000 Unit Tablet, 1000 UNIT PO DAILY, TAB 08/09/16 Oxybutynin Chloride* (Ditropan* XL) 10 Mg Tab.er.24, 10 MG PO DAILY, TAB.SA 08/09/16 Gabapentin* (Gabapentin*) 100 Mg Capsule, 100 MG PO DAILY, #30 CAP 08/09/16 Pantoprazole* (Protonix*) 40 Mg Tablet.dr, 40 MG PO DAILY, TAB 03/06/15 Metformin Hcl* (Metformin Hcl*) 1,000 Mg Tablet, 1000 MG PO BID WITH MEALS, #30 TAB 03/06/15 Losartan Potassium* (Cozaar*) 50 Mg Tablet, 50 MG PO BID 10/29/10 Atorvastatin (Lipitor) 20 Mg Tablet, 20 MG PO HS 10/29/10 Aspirin (Jhonny Child) 81 Mg Chew, 81 MG PO DAILY 10/29/10 Discontinued Scripts Metronidazole* (Flagyl*) 500 Mg Tablet, 500 MG PO TID for 10 Days, TAB Prov:ARIEL JOE MD 08/09/16 Ciprofloxacin Hcl* (Ciprofloxacin Hcl*) 500 Mg Tablet, 500 MG PO BID for 10 Days , TAB Prov:ARIEL JOE MD 08/09/16 Allergies Allergies: Coded Allergies: Penicillins (Verified Allergy, Unknown, 08/09/16) aspirin (Verified Allergy, Unknown, 08/09/16) PMhx/Soc hyperlipidemia, hypertension, diabetes mellitus, gastritis, gastroesophageal reflux disease, diverticulosis, osteoarthritis, diabetic neuropathy, urinary tract infection, pyelonephritis, and depression History of Surgery: No Anesthesia Reaction: No Hx Neurological Disorder: No Hx Respiratory Disorders: No Hx Cardiac Disorders: Yes (HTN) Hx Psychiatric Problems: No Hx Miscellaneous Medical Probl: Yes ( DM Ulcers bladder fistula, diverticulosis ) Hx Alcohol Use: No Hx Substance Use: No Hx Tobacco Use: No FmHx Family History: No diabetes Physical Exam Vitals Vital Signs Date Time Temp Pulse Resp B/P Pulse Ox O2 Delivery O2 Flow Rate FiO2 12/25/16 19:22 97.8 65 17 137/78 98 Room Air 12/25/16 18:20 97.8 70 20 161/74 95 Physical Exam GENERAL: Well-developed, well-nourished, well-hydrated, in no apparent distress , looks nontoxic in appearance HEENT: Moist mucous membranes, pink conjunctiva, no cervical spine tenderness or step-off deformities, no goiter, no jaundice or icterus, extraocular movements intact without pain. No submandibular induration, and no pharyngeal erythema NEURO: Alert and oriented 3, cranial nerves II through XII intact bilaterally, pupils equal round reactive to light, no focal deficits or facial asymmetry, sensation intact distally Strength 5/5 in upper and lower extremities bilaterally CARDIAC: Regular rate and rhythm, no murmurs rubs or gallops LUNGS: Clear bilaterally no wheezing crackles or stridor ABDOMEN: Soft nontender, no guarding, no rigidity, no rebound, no psoas sign no obturator sign. Normoactive bowel sounds SKIN: Warm and dry to touch, no abrasions, contusions, or hematomas, no lacerations, no ecchymosis, no target lesions, and without ulcers EXTREMITIES: Right lower extremity varicose veins anteriorly just proximal to the ankle, calves are bilaterally symmetrical, no Homans sign, no popliteal cord sign. Distal pulses equal and bilateral PSYCH: Normal affect without agitation or irritability Result Diagram: 12/25/16191412/25/161914 Results 24 hrs Laboratory Tests Test 12/25/16 19:15 White Blood Count 8.210^3/ul Red Blood Count 4.5510^6/ul Hemoglobin 12.2g/dl Hematocrit 37.8% Mean Corpuscular Volume 83.1fl Mean Corpuscular Hemoglobin 26.8pg Mean Corpuscular Hemoglobin Concent 32.3g/dl Red Cell Distribution Width 13.5% Platelet Count 47237^3/UL Mean Platelet Volume 9.3fl Neutrophils % 37.5% Lymphocytes % 51.5% Monocytes % 7.0% Eosinophils % 3.0% Basophils % 0.9% Nucleated Red Blood Cells % 0.0/100WBC Neutrophils # 3.110^3/ul Lymphocytes # 4.210^3/ul Monocytes # 0.610^3/ul Eosinophils # 0.310^3/ul Basophils # 0.110^3/ul Nucleated Red Blood Cells # 0.010^3/ul Prothrombin Time 12.5Sec Prothrombin Time Ratio 1.0 INR International Normalized Ratio 0.93 Sodium Level 142mmol/L Potassium Level 4.1mmol/L Chloride Level 101mmol/L Carbon Dioxide Level 29mmol/L Anion Gap 16 Blood Urea Nitrogen 10mg/dl Creatinine 0.71mg/dl Glucose Level 95mg/dl Calcium Level 9.5mg/dl Total Bilirubin 0.2mg/dl Direct Bilirubin 0.00mg/dl Indirect Bilirubin 0.2mg/dl Aspartate Amino Transf (AST/SGOT) 27IU/L Alanine Aminotransferase (ALT/SGPT) 35IU/L Alkaline Phosphatase 52IU/L Troponin I < 0.012ng/ml Total Protein 8.0g/dl Albumin 4.4g/dl Globulin 3.60g/dl Albumin/Globulin Ratio 1.22 Lipase 994U/L Current Medications Medications (Trade) Dose Ordered Sig/Terra Route PRN Reason Start Time Stop Time Status Last Admin Dose Admin Sodium Chloride (NS) 1,000 ml @ 1,000 mls/hr Q1H ONCE IV 12/25/16 21:30 12/25/16 22:29 Procedures/MDM IV line was established patient was placed on plugger worker rhythm strip revealed a sinus rhythm at about 60 bpm with upright P and T waves. Patient was afebrile EKG performed, read by me: 63 bpm, normal sinus rhythm, normal axis, no acute ST segment changes, narrow QRS complex, with good R-wave progression in precordial leads. One AP view of the chest performed, read by me reveals no acute infiltrates, normal mediastinum, sharp costophrenic and cardiac borders, no air under the diaphragm. Otherwise unremarkable chest x-ray. Bilateral lower extremity ultrasound was performed: No evidence of a deep vein thrombosis within the bilateral lower extremities. CBC was normal, electrolytes were normal, liver function tests were normal although lipase was over 900. Troponin was negative. Coagulation profile was normal. I administered 2 L normal saline intravenously for acute pancreatitis. I spoke to the patient's insurance directed physician and we both agreed to patient will have to be admitted for continued IV hydration. Patient admitted to [facility]. Departure Diagnosis: Primary Impression: Pain of right leg Additional Impression: Acute pancreatitis Pancreatitis type: unspecified pancreatitis type Acute pancreatitis complication: unspecified Qualified Code: K85.90 - Acute pancreatitis, unspecified complication status, unspecified pancreatitis type Condition: MICHELINE Dawn MD Dec 25, 2016 19:05
[2016-12-25 19:22] VITALS: TEMP 97.8
[2016-12-25 19:25] LABS: BASOPHIL # 0.1 10^3/ul (0.0-0.1); BASOPHILS % 0.9 % (0.0-2.0); EOSINOPHILS # 0.3 10^3/ul (0.0-0.5); HEMATOCRIT 37.8 % (37.0-47.0); HEMOGLOBIN 12.2 g/dl (12.0-16.0); LYMPHOCYTES # 4.2 10^3/ul (0.8-2.9); LYMPHOCYTES % 51.5 % (15.0-51.0); MEAN CORPUSCULAR HEMOGLOBIN 26.8 pg (29.0-33.0); MEAN CORPUSCULAR HGB CONC 32.3 g/dl (32.0-37.0); MEAN CORPUSCULAR VOLUME 83.1 fl (82.0-101.0); MEAN PLATELET VOLUME 9.3 fl (7.4-10.4); MONOCYTE # 0.6 10^3/ul (0.3-0.9); NEUTROPHIL # 3.1 10^3/ul (1.6-7.5); NEUTROPHILS % 37.5 % (39.0-77.0); PLATELET COUNT 218 10^3/UL (140-415); RED BLOOD COUNT 4.55 10^6/ul (4.20-5.40); RED CELL DISTRIBUTION WIDTH 13.5 % (11.5-14.5); WHITE BLOOD COUNT 8.2 10^3/ul (4.8-10.8)
--- NOTE | 2016-12-25 19:29 | RADRPT ---
PROCEDURE: XR Chest. CLINICAL INDICATION: Abdominal pain. TECHNIQUE: Single frontal view. COMPARISON: 06/28/2015. FINDINGS: The lungs are clear. The heart size is normal. There is calcification in the aorta consistent with atherosclerosis. There is no pleural effusion. There is no pneumothorax. IMPRESSION: 1. Atherosclerosis. 2. Otherwise normal chest radiograph. RPTAT: QQ .Benito Aguilera MD, MD Date Time Electronically viewed and signed by .Benito Aguilera MD, on 12/25/2016 19:28 .R/
--- NOTE | 2016-12-25 19:40 | RADRPT ---
PROCEDURE: Ultrasound of the bilateral lower extremity venous system. CLINICAL INDICATION: Bilateral leg pain and swelling, deep venous thrombosis TECHNIQUE: Meléndez scale with and without compression, color doppler, spectral doppler of the venous system of the bilateral lower extremities was performed. Venous augmentation maneuvers were utilized . COMPARISON: No prior studies are available for comparison. FINDINGS: Right: Common femoral vein: Patent. Femoral vein: Patent. Popliteal vein: Patent. Calf veins: Patent. No soft tissue abnormalities are identified. Left: Common femoral vein: Patent. Femoral vein: Patent. Popliteal vein: Patent. Calf veins: Patent. No soft tissue abnormalities are identified. IMPRESSION: No evidence of a deep vein thrombosis within the bilateral lower extremities. RPTAT: AADD .Sahil Claros MD, MD Date Time Electronically viewed and signed by .Sahil Claros MD, on 12/25/2016 19:40 .B/
[2016-12-25 19:44] LABS: INR 0.93; PROTIME 12.5 Sec (12.2-14.2)
[2016-12-25 19:48] LABS: ALANINE AMINOTRANSFERASE 35 IU/L (13-69); ALBUMIN 4.4 g/dl (3.3-4.9); ALBUMIN/GLOBULIN RATIO 1.22; ALKALINE PHOSPHATASE 52 IU/L (42-121); ANION GAP 16 (8-16); ASPARTATE AMINO TRANSFERASE 27 IU/L (15-46); BILIRUBIN,INDIRECT 0.2 mg/dl (0-1.1); BILIRUBIN,TOTAL 0.2 mg/dl (0.2-1.3); BLOOD UREA NITROGEN 10 mg/dl (7-20); CALCIUM 9.5 mg/dl (8.4-10.2); CARBON DIOXIDE 29 mmol/L (21-31); CHLORIDE 101 mmol/L (97-110); CREATININE 0.71 mg/dl (0.44-1.00); GLUCOSE 95 mg/dl (70-220); POTASSIUM 4.1 mmol/L (3.5-5.1); SODIUM 142 mmol/L (135-144)
[2016-12-25 20:04] LABS: TROPONIN-I < 0.012 ng/ml (0.00-0.12)
[2016-12-25] MEDS ORDERED: SOD CHLORIDE 0.9% 1,000 ML IV ONE (21:30)
[2016-12-25] MEDS: D5W-0.45 NACL + KCL 20 MEQ 1,000 ML IV SCH (22:44)
[2016-12-25] MEDS ORDERED: HYDROCODONE/APAP (5/325) TAB PO PRN (23:00)
[2016-12-25] MEDS ORDERED: NACL 0.9% 3 ML SYG IV SCH (23:00)
[2016-12-25] MEDS ORDERED: DOCUSATE SODIUM 100 MG CAP PO PRN (23:00)
[2016-12-25] MEDS ORDERED: ZOLPIDEM 5 MG TAB PO PRN (23:00)
--- NOTE | 2016-12-25 23:31 | HP ---
Date/Time of Note Date/Time of Note DATE: 12/25/16 TIME: 23:09 Assessment/Plan VTE Prophylaxis VTE Prophylaxis Intervention: LMWH Assessment/Plan Assessment/Plan [facility] 71yo woman who has had increasing abdominal pain for several weeks, much worse tonight. Found to have elevated lipase. No obvious cause (eg. medications), apart from an association with her diabetes. * Med Surg admission * Full-code * IV fluids overnight with D51/2 NS at 100 cc/hr. * Check sugars q6h and qAC. * NPO except for fluids * [place] PRN for pain control * Nausea PRN Zofran * Resumed outpatient meds. Willl hold her metformin for now, and cover with Lantus. Lilian Batista MD PhD [phone] HPI/ROS Admit Date/Time Admit Date/Time 25 Dec 2016 Hx of Present Illness 71yo woman who was referred by her PCP office for possible right lower extremity DVT on Doppler ultrasound this afternoon. She has had pain in that leg for months, without swelling or falling. A preliminary reading of the US suggested DVT, and [facility]. In the ER, repeat Doppler studies of both legs were negative for DVT. But she did complain of worsening abdominal pain and episodic nausea. Lipase was moderately elevated, and she is being admitted for treatment of pancreatitis. She has a history of hyperlipidemia, hypertension, diabetes mellitus, gastritis and gastroesophageal reflux disease. 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 She is ambulatory. She was seen in the ED last July complaining of a one-month history of worsening , generalized, sharp and crampy, nonradiating abdominal pain with nausea but no vomiting, diarrhea or constipation. She is sensitive to both penicillin and aspirin. ROS She has been having episodes for several months of pain in the left chest, radiating to the face and sometimes to the left shoulder. No nausea or dyspnea with these episodes. Previous cardiac workup has been negative to-date. She goes to the bathroom frequently, and urination is sometimes painful. PMH/Family/Social Past Medical History Medical History: diabetes, diverticulitis, high cholesterol, hypertension Family History Significant Family History: heart disease (Father of an ND.), other Social History Lives with her daughter Ronda, son-in-law, and two grandchildren. Worked in a factory at one time doing needlework. Smoking Status: Never smoker Drug Use: none Exam/Review of Systems Vital Signs Vitals Vital Signs Date Time Temp Pulse Resp B/P Pulse Ox O2 Delivery O2 Flow Rate FiO2 12/25/16 19:22 97.8 65 17 137/78 98 Room Air Exam Exam Const: Alert, moderate distress due to pain. Head: Atraumatic Eyes: Normal Conjunctiva, PERRL, EOMI ENT: Normal External Ears, Nose and Mouth. Neck: Full range of motion. No meningismus. Resp: Clear to auscultation bilaterally, with good air movement. Cardiovasc: Regular rhythm, normal rate, no murmur or rub, good peripheral perfusion Abd: Soft, mild diffuse tenderness. No rebound or guarding. Bowel sounds are present but mildly suppressed. Skin: No petechiae or rash Back: No midline or flank tenderness Ext: No cyanosis, or edema. Symmetric pulses. No calf tenderness either leg. Neur: Awake and alert, friendly speaking in Irish fluently, cranial nerves/ motor/light touch intact. Toes downgoing. Psych: Normal Mood and Affect Labs Result Diagram: 12/25/16191412/25/161914 Medications Medications Current Medications Potassium Chloride/Dextrose/ Sod Cl (D5-1/2ns + KCl 20 Meq) 1,000 ml @ 100 mls/ hr Q10H IV ; Start 12/25/16 at 22:44 Ondansetron HCl (Zofran Inj) 4 mg Q4 PRN IV NAUSEA AND/OR VOMITING; Start 12/01 at 23:00 Acetaminophen (Tylenol Tab) 650 mg Q6H PRN PO PAIN LEVEL 1-3 OR FEVER; Start 12/25/16 at 23:00 Acetaminophen/ Hydrocodone Bitart ([place] (5/325)) 1 tab Q6H PRN PO MODERATE PAIN LEVEL 4-6; Start 12/25/16 at 23:00 Acetaminophen/ Hydrocodone Bitart ([place] (5/325)) 2 tab Q6H PRN PO SEVERE PAIN LEVEL 7-10; Start 12/25/16 at 23:00 Docusate Sodium (Colace) 100 mg Q12H PRN PO CONSTIPATION; Start 12/25/16 at 23 :00 Zolpidem Tartrate (Ambien) 5 mg QHS PRN PO SLEEP; Start 12/25/16 at 23:00 Famotidine (Pepcid Iv) 20 mg Q12 IV ; Start 12/25/16 at 23:00 Enoxaparin Sodium (Lovenox) 40 mg DAILY SC ; Start 12/26/16 at 09:00 CARMEN BATISTA M.D. Dec 25, 2016 23:23
[2016-12-25 23:35] VITALS: BP 147/73; PULSE 66; RESP 18; Ht 157.5 cm; Wt 77.3 kg
[2016-12-25] MEDS ORDERED: HYDR25TA6 PO (23:47)
[2016-12-25] MEDS ORDERED: PARO10TA76 PO (23:47)
[2016-12-26] MEDS: FAMOTIDINE 20 MG INJ IV SCH ×3 (00:21→20:46)
[2016-12-26] MEDS: D5W-0.45 NACL + KCL 20 MEQ 1,000 ML IV SCH ×3 (00:21→20:45)
[2016-12-26 02:55] VITALS: BP 151/67; RESP 18
[2016-12-26 05:43] LABS: BASOPHIL # 0.1 10^3/ul (0.0-0.1); BASOPHILS % 0.9 % (0.0-2.0); EOSINOPHILS # 0.3 10^3/ul (0.0-0.5); EOSINOPHILS % 4.9 % (0.0-7.0); HEMOGLOBIN 11.3 g/dl (12.0-16.0); LYMPHOCYTES # 3.3 10^3/ul (0.8-2.9); LYMPHOCYTES % 49.6 % (15.0-51.0); MEAN CORPUSCULAR HEMOGLOBIN 26.2 pg (29.0-33.0); MEAN CORPUSCULAR HGB CONC 31.4 g/dl (32.0-37.0); MEAN CORPUSCULAR VOLUME 83.5 fl (82.0-101.0); MEAN PLATELET VOLUME 10.1 fl (7.4-10.4); MONOCYTE # 0.4 10^3/ul (0.3-0.9); MONOCYTES % 6.6 % (0.0-11.0); NEUTROPHIL # 2.5 10^3/ul (1.6-7.5); NEUTROPHILS % 37.9 % (39.0-77.0); PLATELET COUNT 198 10^3/UL (140-415); RED BLOOD COUNT 4.31 10^6/ul (4.20-5.40); RED CELL DISTRIBUTION WIDTH 13.5 % (11.5-14.5); WHITE BLOOD COUNT 6.7 10^3/ul (4.8-10.8)
[2016-12-26 06:25] LABS: AMYLASE 65 U/L (11-123)
[2016-12-26 06:27] LABS: CALCIUM 8.8 mg/dl (8.4-10.2); CREATININE 0.63 mg/dl (0.44-1.00); POTASSIUM 3.8 mmol/L (3.5-5.1)
[2016-12-26 07:56] VITALS: BP 154/75; RESP 20
[2016-12-26] MEDS: HYDROCODONE/APAP (5/325) TAB PO PRN (08:22)
[2016-12-26] MEDS: ENOXAPARIN 40 MG/0.4 ML SYG SC SCH (08:28)
[2016-12-26] MEDS: ONDANSETRON 4 MG INJ IV PRN (13:21)
[2016-12-26 14:48] VITALS: BP 159/74; RESP 20
[2016-12-26] MEDS: PANTOPRAZOLE (EC) 40 MG TAB PO SCH (15:30)
[2016-12-26] MEDS: CHOLECALCIFEROL 1,000 UNIT TAB PO SCH (15:30)
[2016-12-26] MEDS: GABAPENTIN 100 MG CAP PO SCH (15:30)
[2016-12-26] MEDS: ASPIRIN 81 MG TAB PO SCH (15:30)
--- NOTE | 2016-12-26 15:51 | PN ---
Date/Time of Note Date/Time of Note DATE: 12/26/16 TIME: 15:45 Assessment/Plan VTE Prophylaxis VTE Prophylaxis Intervention: SCD's Lines/Catheters IV Catheter Type (from Nrsg): Peripheral IV Central line still needed: No Urinary Cath still in place: No Assessment/Plan Assessment/Plan 71yo woman who has had increasing abdominal pain for several weeks, much worse tonight. Found to have elevated lipase. No obvious cause (eg. medications), apart from an association with her diabetes. 1. Pancreatitis: resolving; continue IVF and slowly introduce clear liquid diet tonight. 2. DM: Stable; Restart metformin as creatinine okay and add SSI and check hgA1c 3. Hyperlipidemia: Stable, check lipid panel and continue statin. 4. MDD: stable; resume SSRI. Disposition: to home in 1-2 days when tolerating diet. Subjective 24 Hr Interval Summary Free Text/Dictation Abdominal pain is resolved. Overall, she feels better, but still feeling a little dizzy. Exam/Review of Systems Vital Signs Vitals Vital Signs Date Time Temp Pulse Resp B/P Pulse Ox O2 Delivery O2 Flow Rate FiO2 12/26/16 14:48 98.3 74 20 159/74 97 12/25/16 23:35 Room Air Intake and Output 12/25/16 12/25/16 12/26/16 15:00 23:00 07:00 Intake Total 450 ml Balance 450 ml Exam Constitutional: alert, oriented Psych: no complaints Head: normocephalic Eyes: nl conjunctiva ENMT: nl external ears & nose Neck: supple Respiratory: clear to auscultation Cardiovascular: regular rate and rhythm Gastrointestinal: soft Extremities: normal pulses Neurological: PETROLEUM PRODUCTION ENGINEER II-XII intact Results Result Diagram: 12/26/16 0438 12/26/16 0438 Results 24 hrs Laboratory Tests Test 12/25/16 19:15 12/26/16 04:38 White Blood Count 8.2 6.7 Red Blood Count 4.55 4.31 Hemoglobin 12.2 11.3 L Hematocrit 37.8 36.0 L Mean Corpuscular Volume 83.1 83.5 Mean Corpuscular Hemoglobin 26.8 L 26.2 L Mean Corpuscular Hemoglobin Concent 32.3 31.4 L Red Cell Distribution Width 13.5 13.5 Platelet Count 218 198 Mean Platelet Volume 9.3 10.1 Neutrophils % 37.5 L 37.9 L Lymphocytes % 51.5 H 49.6 Monocytes % 7.0 6.6 Eosinophils % 3.0 4.9 Basophils % 0.9 0.9 Nucleated Red Blood Cells % 0.0 0.0 Neutrophils # 3.1 2.5 Lymphocytes # 4.2 H 3.3 H Monocytes # 0.6 0.4 Eosinophils # 0.3 0.3 Basophils # 0.1 0.1 Nucleated Red Blood Cells # 0.0 0.0 Prothrombin Time 12.5 Prothrombin Time Ratio 1.0 INR International Normalized Ratio 0.93 Sodium Level 142 141 Potassium Level 4.1 3.8 Chloride Level 101 106 Carbon Dioxide Level 29 27 Anion Gap 16 12 Blood Urea Nitrogen 10 7 Creatinine 0.71 0.63 Glucose Level 95 132 Calcium Level 9.5 8.8 Total Bilirubin 0.2 Direct Bilirubin 0.00 Indirect Bilirubin 0.2 Aspartate Amino Transf (AST/SGOT) 27 Alanine Aminotransferase (ALT/SGPT) 35 Alkaline Phosphatase 52 Troponin I < 0.012 Total Protein 8.0 Albumin 4.4 Globulin 3.60 H Albumin/Globulin Ratio 1.22 Lipase 994 H 186 Amylase Level 65 Medications Medications Current Medications Potassium Chloride/Dextrose/ Sod Cl (D5-1/2ns + KCl 20 Meq) 1,000 ml @ 100 mls/ hr Q10H IV Last administered on 12/26/16 11:39; Admin Dose 100 MLS/HR; Start 12/25/16 at 22:44 Ondansetron HCl (Zofran Inj) 4 mg Q4 PRN IV NAUSEA AND/OR VOMITING Last administered on 12/26/16 13:21; Admin Dose 4 MG; Start 12/25/16 at 23:00 Acetaminophen (Tylenol Tab) 650 mg Q6H PRN PO PAIN LEVEL 1-3 OR FEVER; Start 12/25/16 at 23:00 Acetaminophen/ Hydrocodone Bitart ([place] (5/325)) 1 tab Q6H PRN PO MODERATE PAIN LEVEL 4-6; Start 12/25/16 at 23:00 Acetaminophen/ Hydrocodone Bitart ([place] (5/325)) 2 tab Q6H PRN PO SEVERE PAIN LEVEL 7-10 Last administered on 12/26/16 08:22; Admin Dose 2 TAB; Start 12/25 at 23:00 Docusate Sodium (Colace) 100 mg Q12H PRN PO CONSTIPATION; Start 12/25/16 at 23 :00 Zolpidem Tartrate (Ambien) 5 mg QHS PRN PO SLEEP; Start 12/25/16 at 23:00 Famotidine (Pepcid Iv) 20 mg Q12 IV Last administered on 12/26/16t 08:22; Admin Dose 20 MG; Start 12/25/16 at 23:00 Enoxaparin Sodium (Lovenox) 40 mg DAILY SC Last administered on 12/26/16 08: 28; Admin Dose 40 MG; Start 12/26/16 at 09:00 Diagnostic Test (Pha) (Accu-Chek) 1 ea 02 XX ; Start 12/27/16 at 02:00 Atorvastatin Calcium (Lipitor) 20 mg HS PO ; Start 12/26/16 at 21:00 Cholecalciferol (Vitamin D) 1,000 unit DAILY PO ; Start 12/26/16 at 15:30 Gabapentin (Neurontin) 100 mg DAILY PO ; Start 12/26/16 at 15:30 Losartan Potassium (Cozaar) 50 mg BID PO ; Start 12/26/16 at 21:00 Oxybutynin Chloride (Ditropan Xl) 10 mg DAILY PO ; Start 12/26/16 at 16:00 Pantoprazole (Protonix Tab) 40 mg DAILY@06 PO ; Start 12/26/16 at 15:30 Aspirin (Aspirin) 81 mg DAILY PO ; Start 12/26/16 at 15:30 Miscellaneous Information 1 ea NOTE XX ; Start 12/26/16 at 16:00 Glucose (Glutose) 15 gm Q15M PRN PO DECREASED GLUCOSE; Start 12/26/16 at 16:00 Glucose (Glutose) 22.5 gm Q15M PRN PO DECREASED GLUCOSE; Start 12/26/16 at 16: 00 Dextrose (D50w Syringe) 25 ml Q15M PRN IV DECREASED GLUCOSE; Start 12/26/16 at 16:00 Dextrose (D50w Syringe) 50 ml Q15M PRN IV DECREASED GLUCOSE; Start 12/26/16 at 16:00 Glucagon (Glucagen) 1 mg Q15M PRN IM DECREASED GLUCOSE; Start 12/26/16 at 16: 00 Glucose (Glutose) 15 gm Q15M PRN BUCCAL DECREASED GLUCOSE; Start 12/26/16 at 16:00 KRISTIE BENITES MD Dec 26, 2016 15:51
[2016-12-26] MEDS ORDERED: GLUCOSE GEL 15 GRAM TUBE BUCCAL PRN (16:00)
[2016-12-26] MEDS ORDERED: GLUCOSE GEL 15 GRAM TUBE PO PRN ×2 (16:00)
[2016-12-26] MEDS ORDERED: DEXTROSE 50% 50 ML SYRINGE IV PRN ×2 (16:00)
[2016-12-26] MEDS: OXYBUTYNIN (XL) 5 MG TAB PO SCH (16:00)
[2016-12-26] MEDS ORDERED: GLUCAGON 1 MG INJ IM PRN (16:00)
[2016-12-26] MEDS: ACETAMINOPHEN 325 MG TAB PO PRN (16:23)
[2016-12-26] MEDS: metFORMIN 500 MG TAB PO SCH (17:48)
[2016-12-26] MEDS: INSULIN ASPART [NOVOLOG] 3 ML PEN SC SCH ×2 (17:55→20:54)
[2016-12-26 20:00] VITALS: BP 132/60; RESP 19
[2016-12-26] MEDS: LOSARTAN 50 MG TAB PO SCH (20:52)
[2016-12-26] MEDS: ATORVASTATIN 20 MG TAB PO SCH (20:52)
[2016-12-27] VITALS (7 sets, daily range): BP systolic 118–192; BP diastolic 61–101; RESP 18–19
[2016-12-27] MEDS ORDERED: ACCU-CHEK XX SCH ×3 (02:00)
[2016-12-27] MEDS: PANTOPRAZOLE (EC) 40 MG TAB PO SCH (05:34)
[2016-12-27] MEDS: D5W-0.45 NACL + KCL 20 MEQ 1,000 ML IV SCH ×2 (05:36→15:41)
[2016-12-27 05:45] LABS: CHOL/HDL RATIO 3.4 RATIO
[2016-12-27] MEDS: GABAPENTIN 100 MG CAP PO SCH (08:53)
[2016-12-27] MEDS: CHOLECALCIFEROL 1,000 UNIT TAB PO SCH (08:53)
[2016-12-27] MEDS: metFORMIN 500 MG TAB PO SCH ×2 (08:53→18:03)
[2016-12-27] MEDS: ASPIRIN 81 MG TAB PO SCH (08:53)
[2016-12-27] MEDS: FAMOTIDINE 20 MG INJ IV SCH ×2 (08:53→21:34)
[2016-12-27] MEDS: OXYBUTYNIN (XL) 5 MG TAB PO SCH (08:55)
[2016-12-27] MEDS: LOSARTAN 50 MG TAB PO SCH ×2 (08:56→21:38)
[2016-12-27] MEDS: INSULIN ASPART [NOVOLOG] 3 ML PEN SC SCH ×4 (09:10→21:00)
[2016-12-27] MEDS: ONDANSETRON 4 MG INJ IV PRN (09:36)
[2016-12-27] MEDS: ENOXAPARIN 40 MG/0.4 ML SYG SC SCH (13:11)
[2016-12-27] MEDS: HYDROCODONE/APAP (5/325) TAB PO PRN (13:59)
--- NOTE | 2016-12-27 17:10 | PN ---
Date/Time of Note Date/Time of Note DATE: 12/27/16 TIME: 17:09 Assessment/Plan VTE Prophylaxis VTE Prophylaxis Intervention: LMWH Lines/Catheters [facility]from [facility] Peripheral IV Urinary Cath still in place: No Assessment/Plan Assessment/Plan [facility] 71yo woman with several weeks of increasing abdominal pain. Elevated lipase suggested pancreatitis, which is now substantially improved clinically and with resolution of the lipase to normal-range. Her diabetes has been under good control. She complained of aching pain in the anterior huber on the right. She has increased superficial vascularity of the right mid-calf, but no swelling on exam today. May represent some venous insufficiency, but she doesn't have the typical hyperpigmentation and hyperkeratosis of the involved skin. * Plain x-rays of the tibia/fibula on the right. * Advance to normal, diabetic, soft diet tonight * OK to discharge home if she tolerates it well. * Check sugars qAC and qHS. * [place] PRN for pain control * Nausea PRN Zofran * Resumed outpatient meds, including metformin. * Full-code Lilian Batista MD PhD [phone] Subjective 24 Hr Interval Summary Free Text/Dictation Feeling much better, with minor right flank pain but no anterior abdominal pain. She had moderate emesis this morning after taking her first oral liquids. But she is hungry now. Also complaining of longstanding pain in the right anterior tibia, with occasional swelling and purple discoloration. Exam/Review of Systems Vital Signs Vitals Vital Signs Date Time Temp Pulse Resp B/P Pulse Ox O2 Delivery O2 Flow Rate FiO2 12/27/16 14:28 98.0 63 19 135/71 98 12/25/16 23:35 Room Air Intake and Output 12/26/16 12/26/16 12/27/16 15:00 23:00 07:00 Intake Total 550 ml 1770 ml 1420 ml Balance 550 ml 1770 ml 1420 ml Exam Gen: Friendly, comfortable-appearing, very loquacious in [place] CVS: Regular rhythm, normal rate, good peripheral perfusion Chest: Clear bilaterally. Good air movement. Abd: Soft, non-tender, bowel sounds normal. Ext: No edema or active arthritis. Neuro: Alert, oriented, intact executive function and memory, appropriate affect. Cranial nerves, motor, and light touch sensation intact. Toes downgoing. Skin: No rash. Results Result Diagram: 12/26/16 0438 12/26/16 0438 Results 24 hrs Laboratory Tests Test 12/26/16 17:39 12/26/16 20:51 12/27/16 04:36 12/27/16 08:52 Bedside Glucose 136 127 148 Hemoglobin A1c 7.2 H Triglycerides Level 170 H Cholesterol Level 137 LDL Cholesterol, Calculated 63 HDL Cholesterol 40 Cholesterol/HDL Ratio 3.4 Test 12/27/16 13:07 Bedside Glucose 150 Medications Medications Current Medications Potassium Chloride/Dextrose/ Sod Cl (D5-1/2ns + KCl 20 Meq) 1,000 ml @ 100 mls/ hr Q10H IV Last administered on 12/27/16 15:41; Admin Dose 100 MLS/HR; Start 12/25/16 at 22:44 Ondansetron HCl (Zofran Inj) 4 mg Q4 PRN IV NAUSEA AND/OR VOMITING Last administered on 12/27/16 09:36; Admin Dose 4 MG; Start 12/25/16 at 23:00 Acetaminophen (Tylenol Tab) 650 mg Q6H PRN PO PAIN LEVEL 1-3 OR FEVER Last administered on 12/26/16 16:23; Admin Dose 650 MG; Start 12/25/16 at 23:00 Acetaminophen/ Hydrocodone Bitart ([place] (5/325)) 1 tab Q6H PRN PO MODERATE PAIN LEVEL 4-6 Last administered on 12/26/16 20:49; Admin Dose 1 TAB; Start 12/25/16 at 23:00 Acetaminophen/ Hydrocodone Bitart ([place] (5/325)) 2 tab Q6H PRN PO SEVERE PAIN LEVEL 7-10 Last administered on 12/27/16 13:59; Admin Dose 2 TAB; Start 12/25 at 23:00 Docusate Sodium (Colace) 100 mg Q12H PRN PO CONSTIPATION; Start 12/25/16 at 23 :00 Zolpidem Tartrate (Ambien) 5 mg QHS PRN PO SLEEP; Start 12/25/16 at 23:00 Famotidine (Pepcid Iv) 20 mg Q12 IV Last administered on 12/27/16 08:53; Admin Dose 20 MG; Start 12/25/16 at 23:00 Enoxaparin Sodium (Lovenox) 40 mg DAILY SC Last administered on 12/27/16 13: 11; Admin Dose 40 MG; Start 12/26/16 at 09:00 Atorvastatin Calcium (Lipitor) 20 mg HS PO Last administered on 12/26/16 20: 52; Admin Dose 20 MG; Start 12/26/16 at 21:00 Cholecalciferol (Vitamin D) 1,000 unit DAILY PO Last administered on 08:53; Admin Dose 1,000 UNIT; Start 12/26/16 at 15:30 Gabapentin (Neurontin) 100 mg DAILY PO Last administered on 12/27/16 08:53; Admin Dose 100 MG; Start 12/26/16 at 15:30 Losartan Potassium (Cozaar) 50 mg BID PO Last administered on 12/27/16 08:56 ; Admin Dose 50 MG; Start 12/26/16 at 21:00 Oxybutynin Chloride (Ditropan Xl) 10 mg DAILY PO Last administered on 08:55; Admin Dose 10 MG; Start 12/26/16 at 16:00 Pantoprazole (Protonix Tab) 40 mg DAILY@06 PO Last administered on 12/27/16 05:34; Admin Dose 40 MG; Start 12/26/16 at 15:30 Aspirin (Aspirin) 81 mg DAILY PO Last administered on 12/27/16 08:53; Admin Dose 81 MG; Start 12/26/16 at 15:30 Miscellaneous Information 1 ea NOTE XX ; Start 12/26/16 at 16:00 Glucose (Glutose) 15 gm Q15M PRN PO DECREASED GLUCOSE; Start 12/26/16 at 16:00 Glucose (Glutose) 22.5 gm Q15M PRN PO DECREASED GLUCOSE; Start 12/26/16 at 16: 00 Dextrose (D50w Syringe) 25 ml Q15M PRN IV DECREASED GLUCOSE; Start 12/26/16 at 16:00 Dextrose (D50w Syringe) 50 ml Q15M PRN IV DECREASED GLUCOSE; Start 12/26/16 at 16:00 Glucagon (Glucagen) 1 mg Q15M PRN IM DECREASED GLUCOSE; Start 12/26/16 at 16: 00 Glucose (Glutose) 15 gm Q15M PRN BUCCAL DECREASED GLUCOSE; Start 12/26/16 at 16:00 Diagnostic Test (Pha) (Accu-Chek) 1 ea 02 XX ; Start 12/27/16 at 02:00 CARMEN BATISTA M.D. Dec 27, 2016 17:10
[2016-12-27] MEDS: ATORVASTATIN 20 MG TAB PO SCH (21:34)
[2016-12-28 02:44] VITALS: BP 147/75; RESP 18
[2016-12-28] MEDS: ACETAMINOPHEN 325 MG TAB PO PRN (04:53)
--- NOTE | 2016-12-28 07:20 | RADRPT ---
PROCEDURE: XR right Tibia and Fibula. CLINICAL INDICATION: Pain, injury TECHNIQUE: AP and lateral views of the tibia and fibula were obtained. COMPARISON: No prior studies are available for comparison. FINDINGS: There is normal mineralization and alignment. No fracture or osseous lesion is identified. There is mild joint space narrowing in the medial femorotibial compartment with small medial osteoph ytes. An inferior calcaneal spur is present. There are normal soft tissues without evidence of soft tissue swelling. IMPRESSION: 1. Mild joint space narrowing in the medial femorotibial compartment with small medial osteophytes. 2. An inferior calcaneal spur is present. RPTAT:AAJJ Physician Manpreet Date Time Electronically viewed and signed by Physician Manpreet on 12/28/2016 07:19 /
[2016-12-28 07:46] VITALS: BP 109/56; RESP 17
[2016-12-28] MEDS: ACCU-CHEK XX SCH ×2 (07:50→13:00)
[2016-12-28] MEDS: INSULIN ASPART [NOVOLOG] 3 ML PEN SC SCH ×2 (07:50→11:40)
[2016-12-28] MEDS: LOSARTAN 50 MG TAB PO SCH ×2 (08:42→14:16)
[2016-12-28] MEDS: metFORMIN 500 MG TAB PO SCH (08:42)
[2016-12-28] MEDS: ASPIRIN 81 MG TAB PO SCH (08:42)
[2016-12-28] MEDS: OXYBUTYNIN (XL) 5 MG TAB PO SCH (08:43)
[2016-12-28] MEDS: CHOLECALCIFEROL 1,000 UNIT TAB PO SCH (08:43)
[2016-12-28] MEDS: GABAPENTIN 100 MG CAP PO SCH (08:43)
[2016-12-28] MEDS: ENOXAPARIN 40 MG/0.4 ML SYG SC SCH (08:47)
[2016-12-28] MEDS ORDERED: FAMOTIDINE 20 MG TAB PO SCH (09:00)
--- NOTE | 2016-12-28 12:06 | PN ---
Date/Time of Note Date/Time of Note DATE: 12/28/16 TIME: 12:00 Assessment/Plan VTE Prophylaxis VTE Prophylaxis Intervention: LMWH Lines/Catheters [facility] [place] Urinary Cath still in place: No Assessment/Plan Assessment/Plan 71 yo woman: 1. Acute pancreatitis, resolved as of yesterday. Patient tolerating up to soft diet, she reports that she never goes past soft diet because of her known diverticulosis and a colo-vaginal fistula. 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 2. Diabetes mellitus : Blood sugar in good control, continue outpatient regimen. Follow-up with primary care physician within 1 week 3. Hypertension: Continue home medications 4. Hyperlipidemia: Resume home medications 5. Right lower extremity pain: X-ray tib-fib negative, follow-up with PCP Prophylaxis: Lovenox for DVT prophylaxis, Pepcid for GI prophylaxis Disposition: Discharge home, follow-up with outpatient GI for colonoscopy planned next week, follow-up with outpatient general surgery regarding colovaginal fistula, follow-up with primary care physician Exam/Review of Systems Vital Signs Vitals Vital Signs Date Time Temp Pulse Resp B/P Pulse Ox O2 Delivery O2 Flow Rate FiO2 12/28/16 07:46 97.9 68 17 109/56 97 12/25/16 23:35 Room Air Intake and Output 12/27/16 12/27/16 12/28/16 15:00 23:00 07:00 Intake Total 1990 ml 1275 ml Output Total 1000 ml Balance 990 ml 1275 ml Exam Constitutional: alert, oriented, well developed Respiratory: clear to auscultation, normal air movement Cardiovascular: nl pulses, regular rate and rhythm Gastrointestinal: non-tender, soft Extremities: normal pulses, other (No edema, clubbing or cyanosis) Neurological: INSPECTOR PACKER II-XII intact, nl mental status, nl speech, nl strength Results Result Diagram: 12/26/16 0438 12/26/168 Results 24 hrs Laboratory Tests Test 12/27/16 13:07 12/27/16 17:40 12/27/16 21:36 12/28/16 08:39 Bedside Glucose 150 111 102 120 Imaging Free Text/Dictation PROCEDURE: XR right Tibia and Fibula. CLINICAL INDICATION: Pain, injury TECHNIQUE: AP and lateral views of the tibia and fibula were obtained. COMPARISON: No prior studies are available for comparison. FINDINGS: There is normal mineralization and alignment. No fracture or osseous lesion is identified. There is mild joint space narrowing in the medial femorotibial compartment with small medial osteophytes. An inferior calcaneal spur is present. There are normal soft tissues without evidence of soft tissue swelling. IMPRESSION: 1. Mild joint space narrowing in the medial femorotibial compartment with small medial osteophytes. 2. An inferior calcaneal spur is present. RPTAT:AAJJ Jorge Zavaleta Physician Date Time Electronically viewed and signed by Jorge Zavaleta Physician on 12/28/2016 07:19 Medications Medications Current Medications Ondansetron HCl (Zofran Inj) 4 mg Q4 PRN IV NAUSEA AND/OR VOMITING Last administered on 12/27/16 09:36; Admin Dose 4 MG; Start 12/25/16 at 23:00 Acetaminophen (Tylenol Tab) 650 mg Q6H PRN PO PAIN LEVEL 1-3 OR FEVER Last administered on 12/28/16 04:53; Admin Dose 650 MG; Start 12/25/16 at 23:00 Acetaminophen/ Hydrocodone Bitart ([place] (5/325)) 1 tab Q6H PRN PO MODERATE PAIN LEVEL 4-6 Last administered on 12/26/16 20:49; Admin Dose 1 TAB; Start 12/25/16 at 23:00 Acetaminophen/ Hydrocodone Bitart ([place] (5/325)) 2 tab Q6H PRN PO SEVERE PAIN LEVEL 7-10 Last administered on 12/27/16 13:59; Admin Dose 2 TAB; Start 12/25 at 23:00 Docusate Sodium (Colace) 100 mg Q12H PRN PO CONSTIPATION; Start 12/25/16 at 23 :00 Zolpidem Tartrate (Ambien) 5 mg QHS PRN PO SLEEP; Start 12/25/16 at 23:00 Enoxaparin Sodium (Lovenox) 40 mg DAILY SC Last administered on 12/28/16 08: 47; Admin Dose 40 MG; Start 12/26/16 at 09:00 Atorvastatin Calcium (Lipitor) 20 mg HS PO Last administered on 12/27/16 21: 34; Admin Dose 20 MG; Start 12/26/16 at 21:00 Cholecalciferol (Vitamin D) 1,000 unit DAILY PO Last administered on 08:43; Admin Dose 1,000 UNIT; Start 12/26/16 at 15:30 Gabapentin (Neurontin) 100 mg DAILY PO Last administered on 12/28/16 08:43; Admin Dose 100 MG; Start 12/26/16 at 15:30 Losartan Potassium (Cozaar) 50 mg BID PO Last administered on 12/27/16 21:38 ; Admin Dose 50 MG; Start 12/26/16 at 21:00 Oxybutynin Chloride (Ditropan Xl) 10 mg DAILY PO Last administered on 08:43; Admin Dose 10 MG; Start 12/26/16 at 16:00 Aspirin (Aspirin) 81 mg DAILY PO Last administered on 12/28/16 08:42; Admin Dose 81 MG; Start 12/26/16 at 15:30 Miscellaneous Information 1 ea NOTE XX ; Start 12/26/16 at 16:00 Glucose (Glutose) 15 gm Q15M PRN PO DECREASED GLUCOSE; Start 12/26/16 at 16:00 Glucose (Glutose) 22.5 gm Q15M PRN PO DECREASED GLUCOSE; Start 12/26/16 at 16: 00 Dextrose (D50w Syringe) 25 ml Q15M PRN IV DECREASED GLUCOSE; Start 12/26/16 at 16:00 Dextrose (D50w Syringe) 50 ml Q15M PRN IV DECREASED GLUCOSE; Start 12/26/16 at 16:00 Glucagon (Glucagen) 1 mg Q15M PRN IM DECREASED GLUCOSE; Start 12/26/16 at 16: 00 Glucose (Glutose) 15 gm Q15M PRN BUCCAL DECREASED GLUCOSE; Start 12/26/16 at 16:00 Famotidine (Pepcid) 20 mg BID PO Last administered on 12/28/16 08:43; Admin Dose 20 MG; Start 12/28/16 at 09:00 SHANTANU DUNBAR Dec 28, 2016 12:06
--- NOTE | 2016-12-28 12:07 | PDOCDIS ---
Discharge Instructions CONDITION Patient Condition: Stable HOME CARE INSTRUCTIONS: Diet Instructions: diabetic carb controlled dietSpecial Diet: Remain on soft diet ACTIVITY: Activity Restrictions: Slowly Increase Activity Rest between Activity Avoid heavy lifting Bathing Restrictions: Shower FOLLOW UP/APPOINTMENTS Follow-up Plan Follow-up with primary care physician within 1 week Follow-up with GI for outpatient scheduled colonoscopy on 01/05 Follow-up with outpatient general surgery plus colonoscopy regarding colovaginal fistula SHANTANU DUNBAR Dec 28, 2016 12:07
[2016-12-28] MEDS ORDERED: HYDR-3498 PO (12:08)
[2016-12-28 15:36] VITALS: BP 147/75; RESP 16
== END 2016-12-28 17:25 | disposition home health service (06) | DRG 440 ==
LOC: E/R 18:12 → MS1 21:26
PROVIDERS: ADMIT Internal Medicine; ATTEND Internal Medicine
DX: K85.90 Acute pancreatitis without necrosis or infection, unspecified (principal); E11.40 Type 2 diabetes mellitus with diabetic neuropathy, unspecified; E11.622 Type 2 diabetes mellitus with other skin ulcer; M79.604 Pain in right leg; F32.9 Major depressive disorder, single episode, unspecified; L98.499 Non-pressure chronic ulcer of skin of other sites with unspecified severity; I10 Essential (primary) hypertension; K21.9 Gastro-esophageal reflux disease without esophagitis; E78.00 Pure hypercholesterolemia, unspecified; Z79.82 Long term (current) use of aspirin; Z88.0 Allergy status to penicillin; Z88.6 Allergy status to analgesic agent
CPT/HCPCS: 36415; 71010; 73590; 80048; 80053; 80061; 82150; 82962; 83036; 83690; 84484; 85025; 85610; 93005; 93970; J1650; J1815; J2405; J3480; J7030

== ENCOUNTER 2017-04-21 10:29 | Emergency (ER) | END 2017-04-21 19:00 | disposition left against medical advice (07) ==

== ENCOUNTER 2017-12-14 15:20 | Emergency (ER) | END 2017-12-14 21:20 | disposition home or self-care (01) ==

== ENCOUNTER 2017-12-15 14:46 | Emergency (ER) | END 2017-12-15 20:24 | disposition home or self-care (01) ==

== ENCOUNTER 2018-10-16 18:42 | Emergency (ER) | payer MEDICARE, BC ==
[~2018-10-16] VITALS: Ht 154.9 cm; Wt 78.4 kg
[~2018-10-16 18:42] MED LIST changes: -ASPI-676 PO; +ASPI-817 PO; -ATOR20TA17 PO; +ATOR20TA38 PO; -CHOL100062 PO; +CHOL200056 PO; +CLON-379 PO; +HYDR-3980 PO; +LOSA100T15 PO; -LOSA50TA2 PO; -METF1000 PO; +METF100010 PO; +MIRA50TA PO; -ONDA4TAB8 PO; -OXYB10TA6 PO; -PANT40TA3 PO; +PANT40TA4 PO; +PARO10TA76 PO; -TRAM50TA2 PO; +TYL500 PO
[2018-10-16 18:46] VITALS: Ht 154.9 cm; Wt 78.4 kg
[2018-10-16] MEDS ORDERED: morphine 2 MG INJ IV STA (22:28)
[2018-10-16] MEDS ORDERED: CEFTRIAXONE 1 GM/50 ML (PMX) 50 ML IVPB ONE (23:30)
[2018-10-16] MEDS ORDERED: SOD CHLORIDE 0.9% 500 ML IV ONE (23:30)
[2018-10-16] MEDS ORDERED: SOD CHLORIDE 0.9% 100 ML ONE (23:31)
[2018-10-16] MEDS ORDERED: IOHEXOL 100 ML ONE (23:31)
[2018-10-17 01:21] VITALS: BP 147/71; PULSE 59; RESP 16
== END 2018-10-17 01:30 | disposition home or self-care (01) ==
LOC: E/R 18:42
DX: N39.0 Urinary tract infection, site not specified (principal); I10 Essential (primary) hypertension; E11.9 Type 2 diabetes mellitus without complications; J45.909 Unspecified asthma, uncomplicated; N82.8 Other female genital tract fistulae; Z79.84 Long term (current) use of oral hypoglycemic drugs; Z79.82 Long term (current) use of aspirin
CPT/HCPCS: 36415; 74177; 80053; 81001; 83690; 85025; 87086; 96374; 96375; 99285; J0696; J2270; J7040; Q9967

== ENCOUNTER 2018-11-10 07:30 | Inpatient (IN) | payer MEDICARE, BC ==
[~2018-11-10] VITALS: Ht 152.4 cm; Wt 74.0 kg
[~2018-11-10 07:30] MED LIST changes: +DOCU-159 PO; +IBUP-1544 PO; +LACT1CAP28 PO; +POTA20PA23 PO
[2018-12-08] VITALS (46 sets, daily range): BP systolic 84–161; BP diastolic 46–79; PULSE 68–109; RESP 10–35
[2018-12-08] MEDS ORDERED: metroNIDAZOLE 500 MG/NS (PMX) 100 ML IVPB ONE (07:00)
[2018-12-08] MEDS ORDERED: ROCURONIUM 50 MG INJ ONE (07:00)
[2018-12-08] MEDS ORDERED: PROPOFOL 20 ML ONE (07:00)
[2018-12-08] MEDS ORDERED: CEFAZOLIN 1 GM INJ ONE (07:00)
[2018-12-08] MEDS ORDERED: ROPIVACAINE 0.2% 20 ML VIAL ONE (07:00)
[2018-12-08] MEDS ORDERED: MIDAZOLAM 1 MG/ML 2 ML INJ ONE (07:00)
[2018-12-08] MEDS ORDERED: SOD CHLORIDE 0.9% 1,000 ML IV SCH (07:00)
[2018-12-08] MEDS ORDERED: morphine SULFATE/PF (10 MG/10 ML) INJ ONE (07:02)
[2018-12-08] MEDS ORDERED: IOHEXOL 300MG/ML 30 ML BTL ONE (07:10)
[2018-12-08] MEDS ORDERED: ALBUMIN HUMAN 5% 250 ML IV PRN (08:00)
[2018-12-08] MEDS ORDERED: FENTAnyl 50 MCG/ML VIAL IV PRN ×3 (08:00)
[2018-12-08] MEDS ORDERED: NALBUPHINE HCL (10 MG/1 ML) INJ IV PRN (08:00)
[2018-12-08] MEDS ORDERED: ONDANSETRON 4 MG INJ IV PRN ×2 (08:00)
[2018-12-08] MEDS ORDERED: EPHEDrine 25 MG/5 ML SYG IV PRN (08:00)
[2018-12-08] MEDS ORDERED: DIPHENHYDRAMINE 50 MG INJ IV PRN ×2 (08:00)
[2018-12-08] MEDS ORDERED: OXYCODONE/ACETAMINOPHEN (5/325) TAB PO PRN (08:00)
[2018-12-08] MEDS ORDERED: HYDROmorphONE 0.5 MG/0.5 ML SYG IV PRN ×2 (08:00)
[2018-12-08] MEDS ORDERED: hydrALAzine 20 MG INJ IV PRN (08:00)
[2018-12-08] MEDS ORDERED: HYDROmorphONE 1 MG/5 ML IV SYRINGE IV PRN ×2 (08:00)
[2018-12-08] MEDS ORDERED: MEPERIDINE 25 MG INJ IV PRN (08:00)
[2018-12-08] MEDS ORDERED: morphine 2 MG INJ IV PRN ×3 (08:00→10:00)
[2018-12-08] MEDS ORDERED: METOCLOPRAMIDE 10 MG INJ IV PRN (08:00)
[2018-12-08] MEDS ORDERED: NALOXONE (0.4 MG/ML) INJ IV PRN (08:00)
[2018-12-08] MEDS ORDERED: LABETALOL HCL 20MG INJ IV PRN (08:00)
[2018-12-08] MEDS ORDERED: PHENYLephrine (100 MCG/ML) 10ML SYG ONE ×2 (08:18→08:19)
[2018-12-08] MEDS ORDERED: EPHEDrine 25 MG/5 ML SYG ONE (08:18)
[2018-12-08] MEDS ORDERED: HETASTARCH 6% NACL 500 ML ONE (08:19)
[2018-12-08] MEDS ORDERED: ALBUMIN HUMAN 5% 500 ML ONE (08:20)
[2018-12-08] MEDS ORDERED: GLUCAGON 1 MG INJ ONE (08:33)
[2018-12-08] MEDS ORDERED: ONDANSETRON 4 MG INJ ONE (08:43)
[2018-12-08] MEDS ORDERED: DEXAMETHASONE 4 MG/ML 5 ML INJ ONE (08:43)
[2018-12-08] MEDS ORDERED: METOCLOPRAMIDE 10 MG INJ ONE (08:43)
[2018-12-08] MEDS ORDERED: SUGAMMADEX SODIUM 200 MG/2 ML VIAL IV ONE (09:37)
[2018-12-08] MEDS ORDERED: D5W-0.45 NACL + KCL 20 MEQ 1,000 ML IV SCH (09:38)
[2018-12-08] MEDS: METOCLOPRAMIDE 10 MG INJ IV SCH ×3 (10:32→22:28)
[2018-12-08] MEDS: HYDROmorphONE 1 MG/5 ML IV SYRINGE IV PRN ×2 (10:59→11:45)
[2018-12-08] MEDS ORDERED: GLUCOSE GEL 15 GRAM TUBE PO PRN ×2 (14:00)
[2018-12-08] MEDS ORDERED: GLUCAGON 1 MG INJ IM PRN (14:00)
[2018-12-08] MEDS ORDERED: DEXTROSE 50% 50 ML SYRINGE IV PRN ×2 (14:00)
[2018-12-08] MEDS ORDERED: GLUCOSE GEL 15 GRAM TUBE BUCCAL PRN (14:00)
[2018-12-08] MEDS: CEFAZOLIN 1 GM/50 ML (PMX) 50 ML IVPB SCH ×2 (14:04→22:27)
[2018-12-08] MEDS: 1/2 NS + KCL 20 MEQ 1,000 ML IV SCH (15:22)
[2018-12-08] MEDS ORDERED: CIPROFLOXACIN 400MG/D5W 200 ML IVPB SCH (16:30)
[2018-12-08] MEDS: ACCU-CHEK XX SCH ×2 (17:25→20:39)
[2018-12-08] MEDS: metFORMIN 500 MG TAB PO SCH (18:37)
[2018-12-08] MEDS: INSULIN ASPART [NOVOLOG] 3 ML PEN SC SCH ×2 (18:39→20:51)
[2018-12-08] MEDS: GABAPENTIN 100 MG CAP PO SCH (20:38)
[2018-12-08] MEDS: ATORVASTATIN 20 MG TAB PO SCH (20:38)
[2018-12-09] VITALS: BP 112/61; PULSE 86; RESP 18
[2018-12-09] MEDS: 1/2 NS + KCL 20 MEQ 1,000 ML IV SCH ×4 (00:50→19:38)
[2018-12-09] MEDS: ACCU-CHEK XX SCH ×6 (02:13→22:25)
[2018-12-09] MEDS: METOCLOPRAMIDE 10 MG INJ IV SCH ×4 (03:39→22:35)
[2018-12-09] MEDS: CEFAZOLIN 1 GM/50 ML (PMX) 50 ML IVPB SCH ×3 (05:13→22:35)
[2018-12-09] MEDS: PANTOPRAZOLE 40 MG INJ IV SCH (05:13)
[2018-12-09] MEDS ORDERED: CIPROFLOXACIN 400MG/D5W 200 ML IVPB SCH (05:30)
[2018-12-09] MEDS ORDERED: ENOXAPARIN 40 MG/0.4 ML SYG SC SCH (07:00)
[2018-12-09] MEDS: metFORMIN 500 MG TAB PO SCH ×2 (07:30→17:55)
[2018-12-09] MEDS: INSULIN ASPART [NOVOLOG] 3 ML PEN SC SCH ×4 (07:30→21:00)
[2018-12-09 07:31] VITALS: BP 97/53; PULSE 82; RESP 18
[2018-12-09] MEDS: HYDROCODONE/APAP (5/325) TAB PO PRN ×2 (08:18→14:23)
[2018-12-09] MEDS: LOSARTAN 50 MG TAB PO SCH (09:00)
[2018-12-09] MEDS ORDERED: NON-FORMULARY/PATIENT OWN MED (Mirabegron (Myrbetriq) 50 MG) XX SCH (09:00)
[2018-12-09] MEDS: CIPROFLOXACIN 400MG/D5W 200 ML IVPB SCH ×2 (09:26→19:49)
[2018-12-09] MEDS: ASPIRIN (EC) 81 MG TAB PO SCH (09:31)
[2018-12-09] MEDS: GABAPENTIN 100 MG CAP PO SCH ×2 (09:31→20:19)
[2018-12-09] MEDS: PAROXETINE 10 MG TAB PO SCH (09:31)
[2018-12-09 14:20] VITALS: BP 126/60; PULSE 90; RESP 18
[2018-12-09] MEDS: ENOXAPARIN 40 MG/0.4 ML SYG SC SCH (18:22)
[2018-12-09 19:10] VITALS: BP 124/61; PULSE 92; RESP 18
[2018-12-09] MEDS: HYDROCODONE/APAP (10/325) TAB PO PRN (19:48)
[2018-12-09] MEDS: ATORVASTATIN 20 MG TAB PO SCH (21:00)
[2018-12-09] MEDS: ACETAMINOPHEN 325 MG TAB PO PRN (22:37)
[2018-12-10 02:00] VITALS: BP 144/64; PULSE 101; RESP 20
[2018-12-10] MEDS: HYDROCODONE/APAP (10/325) TAB PO PRN (02:34)
[2018-12-10] MEDS: 1/2 NS + KCL 20 MEQ 1,000 ML IV SCH ×4 (03:30→19:30)
[2018-12-10] MEDS: METOCLOPRAMIDE 10 MG INJ IV SCH ×4 (05:06→23:02)
[2018-12-10] MEDS: PANTOPRAZOLE 40 MG INJ IV SCH (05:27)
[2018-12-10] MEDS: CEFAZOLIN 1 GM/50 ML (PMX) 50 ML IVPB SCH ×3 (05:27→23:02)
[2018-12-10] MEDS: INSULIN ASPART [NOVOLOG] 3 ML PEN SC SCH ×4 (07:30→20:49)
[2018-12-10] MEDS: metFORMIN 500 MG TAB PO SCH ×2 (07:30→17:55)
[2018-12-10] MEDS: ACCU-CHEK XX SCH ×5 (07:56→20:51)
[2018-12-10] MEDS: CIPROFLOXACIN 400MG/D5W 200 ML IVPB SCH ×2 (08:26→20:17)
[2018-12-10] MEDS: ACETAMINOPHEN 325 MG TAB PO PRN ×3 (08:26→23:42)
[2018-12-10] MEDS: ASPIRIN (EC) 81 MG TAB PO SCH (08:26)
[2018-12-10] MEDS: PAROXETINE 10 MG TAB PO SCH (08:26)
[2018-12-10] MEDS: LOSARTAN 50 MG TAB PO SCH (08:26)
[2018-12-10] MEDS: GABAPENTIN 100 MG CAP PO SCH ×2 (08:27→20:18)
[2018-12-10 08:43] VITALS: BP 135/63; PULSE 98; RESP 18
[2018-12-10 14:12] VITALS: BP 130/57; PULSE 92; RESP 18
[2018-12-10 19:15] VITALS: BP 138/67; PULSE 91; RESP 20
[2018-12-10] MEDS: ENOXAPARIN 40 MG/0.4 ML SYG SC SCH (19:32)
[2018-12-10] MEDS: ATORVASTATIN 20 MG TAB PO SCH (20:49)
[2018-12-11] MEDS: ZOLPIDEM 5 MG TAB PO PRN ×2 (01:29→22:52)
[2018-12-11 02:00] VITALS: BP 138/68; PULSE 85; RESP 20
[2018-12-11] MEDS: 1/2 NS + KCL 20 MEQ 1,000 ML IV SCH (05:12)
[2018-12-11] MEDS: METOCLOPRAMIDE 10 MG INJ IV SCH ×4 (05:14→22:52)
[2018-12-11] MEDS: PANTOPRAZOLE 40 MG INJ IV SCH (05:15)
[2018-12-11] MEDS: CEFAZOLIN 1 GM/50 ML (PMX) 50 ML IVPB SCH ×3 (05:15→22:52)
[2018-12-11] MEDS: ACCU-CHEK XX SCH ×4 (07:20→21:32)
[2018-12-11] MEDS: metFORMIN 500 MG TAB PO SCH ×2 (07:30→17:40)
[2018-12-11] MEDS: CIPROFLOXACIN 400MG/D5W 200 ML IVPB SCH ×2 (08:01→19:49)
[2018-12-11] MEDS: INSULIN ASPART [NOVOLOG] 3 ML PEN SC SCH ×4 (08:08→21:00)
[2018-12-11] MEDS: ASPIRIN (EC) 81 MG TAB PO SCH (09:00)
[2018-12-11 09:14] VITALS: BP 143/71; PULSE 94; RESP 18
[2018-12-11] MEDS: PAROXETINE 10 MG TAB PO SCH (09:38)
[2018-12-11] MEDS: GABAPENTIN 100 MG CAP PO SCH ×2 (09:38→21:34)
[2018-12-11] MEDS: LOSARTAN 50 MG TAB PO SCH (09:40)
[2018-12-11] MEDS: KETOROLAC 15 MG INJ IV PRN (13:46)
[2018-12-11] MEDS: ACETAMINOPHEN 325 MG TAB PO PRN (13:46)
[2018-12-11 16:19] VITALS: BP 120/64; PULSE 88; RESP 18
[2018-12-11 17:06] VITALS: BP 121/73; PULSE 89; RESP 18
[2018-12-11] MEDS: ENOXAPARIN 40 MG/0.4 ML SYG SC SCH (18:10)
[2018-12-11 20:15] VITALS: BP 126/65; PULSE 86; RESP 18
[2018-12-11] MEDS: ATORVASTATIN 20 MG TAB PO SCH (21:00)
[2018-12-12 01:59] VITALS: BP 140/65; PULSE 88; RESP 18
[2018-12-12] MEDS: ACCU-CHEK XX SCH ×5 (02:00→20:50)
[2018-12-12] MEDS: CEFAZOLIN 1 GM/50 ML (PMX) 50 ML IVPB SCH ×3 (05:32→20:56)
[2018-12-12] MEDS: METOCLOPRAMIDE 10 MG INJ IV SCH ×4 (05:33→20:40)
[2018-12-12] MEDS: PANTOPRAZOLE 40 MG INJ IV SCH (05:39)
[2018-12-12 07:30] VITALS: BP 123/74; PULSE 95; RESP 18
[2018-12-12] MEDS: metFORMIN 500 MG TAB PO SCH ×2 (07:30→17:55)
[2018-12-12] MEDS: CIPROFLOXACIN 400MG/D5W 200 ML IVPB SCH ×2 (07:36→19:56)
[2018-12-12] MEDS: GABAPENTIN 100 MG CAP PO SCH ×2 (07:37→20:41)
[2018-12-12] MEDS: PAROXETINE 10 MG TAB PO SCH (07:38)
[2018-12-12] MEDS: LOSARTAN 50 MG TAB PO SCH (07:38)
[2018-12-12] MEDS: ASPIRIN (EC) 81 MG TAB PO SCH (07:38)
[2018-12-12] MEDS: INSULIN ASPART [NOVOLOG] 3 ML PEN SC SCH ×4 (07:41→20:43)
[2018-12-12] MEDS: KETOROLAC 15 MG INJ IV PRN (09:01)
[2018-12-12] MEDS: DOCUSATE SODIUM 100 MG CAP PO SCH ×2 (09:50→20:40)
[2018-12-12 13:51] VITALS: BP 111/67; PULSE 91; RESP 18
[2018-12-12] MEDS: ACETAMINOPHEN 325 MG TAB PO PRN (15:03)
[2018-12-12] MEDS: ENOXAPARIN 40 MG/0.4 ML SYG SC SCH (17:56)
[2018-12-12 19:44] VITALS: BP 141/74; PULSE 84; RESP 18
[2018-12-12] MEDS: ATORVASTATIN 20 MG TAB PO SCH (20:40)
[2018-12-12] MEDS: MAGNESIUM HYDROXIDE 30ML CUP PO SCH (20:40)
[2018-12-12] MEDS: ZOLPIDEM 5 MG TAB PO PRN (21:29)
[2018-12-13] MEDS: ACCU-CHEK XX SCH ×5 (01:22→21:00)
[2018-12-13 02:27] VITALS: BP 126/60; PULSE 84; RESP 18
[2018-12-13] MEDS: CEFAZOLIN 1 GM/50 ML (PMX) 50 ML IVPB SCH ×3 (04:52→22:53)
[2018-12-13] MEDS: PANTOPRAZOLE 40 MG INJ IV SCH (04:52)
[2018-12-13] MEDS: METOCLOPRAMIDE 10 MG INJ IV SCH ×4 (04:52→21:43)
[2018-12-13] MEDS: HYDROCODONE/APAP (5/325) TAB PO PRN (06:31)
[2018-12-13 07:35] VITALS: BP 121/59; PULSE 94; RESP 18
[2018-12-13] MEDS: DOCUSATE SODIUM 100 MG CAP PO SCH ×2 (08:01→21:00)
[2018-12-13] MEDS: LOSARTAN 50 MG TAB PO SCH (08:02)
[2018-12-13] MEDS: PAROXETINE 10 MG TAB PO SCH (08:02)
[2018-12-13] MEDS: ASPIRIN (EC) 81 MG TAB PO SCH (08:02)
[2018-12-13] MEDS: GABAPENTIN 100 MG CAP PO SCH ×2 (08:02→21:32)
[2018-12-13] MEDS: CIPROFLOXACIN 400MG/D5W 200 ML IVPB SCH ×2 (08:02→21:31)
[2018-12-13] MEDS: INSULIN ASPART [NOVOLOG] 3 ML PEN SC SCH ×4 (08:04→21:00)
[2018-12-13] MEDS: metFORMIN 500 MG TAB PO SCH ×2 (08:07→18:05)
[2018-12-13 13:27] VITALS: BP 121/66; PULSE 96; RESP 18
[2018-12-13] MEDS ORDERED: POTASSIUM CHLORIDE 20 MEQ POWDER FOR ORAL SOLN PO ONE (14:00)
[2018-12-13] MEDS ORDERED: MAGNESIUM SULFATE 2 GM/50 ML 50 ML IVPB ONE (14:00)
[2018-12-13] MEDS: KETOROLAC 15 MG INJ IV PRN (17:21)
[2018-12-13 19:46] VITALS: BP 110/65; PULSE 94; RESP 18
[2018-12-13] MEDS: ENOXAPARIN 40 MG/0.4 ML SYG SC SCH (20:07)
[2018-12-13] MEDS: MAGNESIUM HYDROXIDE 30ML CUP PO SCH (21:00)
[2018-12-13] MEDS: ZOLPIDEM 5 MG TAB PO PRN (21:31)
[2018-12-13] MEDS: ATORVASTATIN 20 MG TAB PO SCH (21:32)
[2018-12-14] MEDS: ACCU-CHEK XX SCH ×3 (01:44→11:40)
[2018-12-14 01:45] VITALS: BP 127/67; PULSE 91; RESP 18
[2018-12-14] MEDS: PANTOPRAZOLE 40 MG INJ IV SCH (05:25)
[2018-12-14] MEDS: METOCLOPRAMIDE 10 MG INJ IV SCH ×3 (05:25→16:00)
[2018-12-14] MEDS: KETOROLAC 15 MG INJ IV PRN (05:25)
[2018-12-14] MEDS: CEFAZOLIN 1 GM/50 ML (PMX) 50 ML IVPB SCH (05:25)
[2018-12-14 08:05] VITALS: BP 124/75; PULSE 88; RESP 18
[2018-12-14] MEDS: metFORMIN 500 MG TAB PO SCH (08:43)
[2018-12-14] MEDS: GABAPENTIN 100 MG CAP PO SCH (08:43)
[2018-12-14] MEDS: PAROXETINE 10 MG TAB PO SCH (08:43)
[2018-12-14] MEDS: ASPIRIN (EC) 81 MG TAB PO SCH (08:43)
[2018-12-14] MEDS: DOCUSATE SODIUM 100 MG CAP PO SCH (08:43)
[2018-12-14] MEDS: LOSARTAN 50 MG TAB PO SCH (08:44)
[2018-12-14] MEDS: INSULIN ASPART [NOVOLOG] 3 ML PEN SC SCH ×2 (08:45→11:30)
[2018-12-14] MEDS ORDERED: CIPROFLOXACIN 500 MG TAB PO SCH (09:00)
[2018-12-14] MEDS ORDERED: POTASSIUM CHLORIDE 20 MEQ POWDER FOR ORAL SOLN PO SCH (09:00)
[2018-12-14] MEDS ORDERED: metroNIDAZOLE 500 MG TAB PO SCH (14:00)
[2018-12-14 15:12] VITALS: BP 134/62; PULSE 79; RESP 18
[2018-12-15] MEDS ORDERED: LACTOBACILLUS RHAMNOSUS CAP PO SCH (09:00)
== END 2018-12-14 17:03 | disposition home health service (06) | DRG 330 ==
LOC: REC 12-08 05:53 → MS1 12-08 15:00
PROVIDERS: ADMIT Surgery; ATTEND Internal Medicine
PROC: 0TQB0ZZ Repair Bladder, Open Approach (ICD-10-PCS; 2018-12-08)
PROC: 0T9880Z Drainage of Bilateral Ureters with Drainage Device, Via Natural or Artificial Opening Endoscopic (ICD-10-PCS; 2018-12-08)
PROC: 0DBP0ZZ Excision of Rectum, Open Approach (ICD-10-PCS; principal; 2018-12-08 07:30)
PROC: 0DBN0ZZ Excision of Sigmoid Colon, Open Approach (ICD-10-PCS; 2018-12-08 07:30)
DX: K57.20 Diverticulitis of large intestine with perforation and abscess without bleeding (principal); N32.1 Vesicointestinal fistula; E88.81 Metabolic syndrome and other insulin resistance; E11.8 Type 2 diabetes mellitus with unspecified complications; I10 Essential (primary) hypertension; E66.9 Obesity, unspecified; Z68.31 Body mass index [BMI] 31.0-31.9, adult
CPT/HCPCS: 74430; 80053; 80061; 81001; 82962; 83036; 83735; 84100; 84443; 85025; 85610; 86850; 86900; 86901; 87086; 88304; 97110; 97116; 97162; 97530; C9113; J0690; J0744; J1100; J1170; J1200; J1610; J1650; J1815; J1885; J2250; J2270; J2274; J2370; J2405; J2765; J2795; J3475; J3480; P9045; Q9967